=== PATIENT | male | born 1985 | race Caucasian/White ===

== ENCOUNTER → 2020-05-31 08:10 | Outpatient (BNVA) | payer BC, SELFPAY | PROVIDERS: Visit Provider Surgery | DX: E66.9 Obesity, unspecified (principal); Z68.34 Body mass index [BMI] 34.0-34.9, adult; Z71.3 Dietary counseling and surveillance ==

== ENCOUNTER → 2020-06-01 07:52 | Outpatient (BNVA) | payer BC, SELFPAY | PROVIDERS: PCP Family Medicine; Visit Provider Dietitian, Registered | DX: Z76.89 Persons encountering health services in other specified circumstances (principal) ==

== ENCOUNTER → 2020-06-09 07:12 | Outpatient (BNVA) | payer BC, SELFPAY | PROVIDERS: PCP Family Medicine; Visit Provider Surgery | DX: E66.9 Obesity, unspecified (principal); Z68.34 Body mass index [BMI] 34.0-34.9, adult ==

== ENCOUNTER → 2020-06-23 14:09 | Outpatient (BNVA) | payer BC, SELFPAY | PROVIDERS: Visit Provider Physician Assistant | DX: Z76.89 Persons encountering health services in other specified circumstances (principal) ==

== ENCOUNTER 2020-07-03 09:51 | Outpatient (REF) | payer BC, SELFPAY ==
--- NOTE | 2020-07-03 10:29 | ECG_ITS ---
Test Reason : PRE OP OBESITY Blood Pressure : / mmHG Vent. Rate : 064 BPM Atrial Rate : 064 BPM P-R Int : 148 ms QRS Dur : 110 ms QT Int : 384 ms P-R-T Axes : 036 012 022 degrees QTc Int : 396 ms Normal sinus rhythm with sinus arrhythmia Normal ECG No previous ECGs available Referred By: Noé Roy Electronically Signed By:JOSE ENRIQUE LEDEZMA MD
--- NOTE | 2020-07-03 10:47 | XR_ITS ---
EXAMINATION: XR CHEST CLINICAL INFORMATION: Obesity COMPARISON: None TECHNIQUE: 2 views of the chest were obtained. FINDINGS: No significant abnormality is noted involving the heart, lungs, mediastinum, bony thorax or soft tissues. XR/XR chest 2V IMPRESSION: Unremarkable examination.
[2020-07-03 10:52] LABS: MANUAL DIFF FLAG NO
[2020-07-03 11:02] LABS: Basophils Percent Auto 0.5 % (0-2); Eosinophils Absolute Auto 0.2 X10*3/uL (0.0-0.4); Eosinophils Percent Auto 2.6 % (0-4); Hematocrit 44.7 % (42-52); Hemoglobin 14.9 g/dl (14.0-18.0); Imm Gran Abs Auto 0.02 X10*3/uL (0.00-0.03); Imm Gran Pct Auto 0.3 % (0.0-0.4); Lymphocytes Absolute Auto 1.6 X10*3/uL (1.2-4.9); Lymphocytes Percent Auto 24.8 % (20-40); Mean Corpuscular HGB Conc 33.3 g/dl (31.0-36.0); Mean Corpuscular Hemoglobin 28.2 pg (27.0-33.0); Mean Corpuscular Volume 84.7 fL (80-98); Mean Platelet Volume 10.7 fL (9.4-12.4); Monocytes Absolute Auto 0.6 X10*3/uL (0.1-1.2); Monocytes Percent Auto 8.4 % (2-11); Neutrophils Absolute Auto 4.2 X10*3/uL (2.0-8.3); Neutrophils Percent Auto 63.4 % (45-73); Platelet Count 295 X10*3/uL (160-400); Red Blood Count 5.28 X10*6/uL (4.60-5.80); Red Cell Distribution Width 13.5 % (11.0-16.0); White Blood Count 6.6 X10*3/uL (4.8-10.8)
[2020-07-03 11:04] LABS: INTERNATIONAL NORM RATIO 1.2 (0.9-1.1); Prothrombin Time 13.7 SEC (10.8-13.0)
[2020-07-03 11:06] LABS: Partial Thromboplastin Time 34.4 SEC (24.1-38.0)
[2020-07-03 11:26] LABS: Alanine Aminotransferase 26 U/L (0-40); Albumin Level 4.7 g/dL (3.5-5.0); Alkaline Phosphatase 77 U/L (39-117); Anion Gap 13 (12-20); Aspartate Amino Transferase 17 U/L (5-37); Blood Urea Nitrogen 13 mg/dL (9-16); C Reactive Protein 0.49 mg/dL (< or = 0.50); Carbon Dioxide 28 mmol/L (22-29); Chloride 102 mmol/L (96-108); Cholesterol 185 mg/dL; Estimated Glomerular Filt Rate > 60; Glucose Random 82 mg/dL (60-115); HDL Cholesterol 36 mg/dL; LDL Cholesterol Calculated 129 mg/dl; Potassium 4.4 mmol/l (3.3-5.1); Sodium 139 mmol/L (135-145); Triglycerides 103 mg/dL
[2020-07-03 11:46] LABS: TSH reflex Free T4 0.76 mIU/mL (0.32-4.0)
[2020-07-03 11:48] LABS: Estimated Average Glucose 103 mg/dL; Hemoglobin A1c % 5.2 %
[2020-07-04 23:17] LABS: Insulin Level Total 6.1 uIU/mL
== END 2020-07-03 09:52 | disposition home or self-care (01) ==
LOC: HO.LAB 09:51
PROVIDERS: PCP Physician Assistant Medical; Visit Provider Surgery
DX: E66.9 Obesity, unspecified (principal); Z68.34 Body mass index [BMI] 34.0-34.9, adult
CPT/HCPCS: 36415; 71046; 80053; 80061; 83036; 83525; 84443; 85025; 85610; 85730; 86140; 86850; 86901; 93005

== ENCOUNTER 2020-07-04 05:41 | Inpatient (IN) | payer BC, SELFPAY ==
[2020-06-20 10:08] VITALS: BMI 34.0
--- NOTE | 2020-07-03 08:48 | P.CONAN_ITS ---
Documented by User: Elva Howell 07/03/20 14:05 HPI - Anesthesia Eval Consult details Narrative: 35yo M for Gastrectomy Sleeve, EGD,poss open,poss ventral hernia,poss diaphragmatic LABS PENDING [facility] Past Medical History Medical History No significant medical problems Obesity Family History Family History Father Heart problem Coronary artery clot DM (diabetes mellitus) HTN (hypertension) Obesity (BMI 30.0-34.9) Sleep apnea Mother RA (rheumatoid arthritis) Daughter No problems noted. Daughter No problems noted. Surgical History Surgical History History of tonsillectomy and adenoidectomy History of wisdom tooth extraction, class II edentulism S/P routine circumcision Social History Social History Are you a primary sub acute care nurse to a significant other at home: No Do you presently have visiting nurse or other home services: No Alcohol intake: never Smoking Status: Never smoker Second Hand Smoke Exposure: No Use of substances other than those prescribed or required for medical reasons: No Have you been hit, kicked, punched, or otherwise hurt by someone within the past year? If so, by whom?: No Advance Directives: No Advance Directives Information Provided: No Advance Directives on File: No Recently lost weight without trying: No Meds Allergies Allergy/AdvReac Type Severity Reaction Status Date / Time apples Allergy Unknown Swelling Uncoded 06/20/20 10:05 hazelnut Allergy Unknown Throat Uncoded 06/20/20 10:05 swelling,Difficult breathing kiwi Allergy Unknown Swelling Uncoded 06/20/20 10:05 peanut butter Allergy Unknown Swelling Uncoded 06/20/20 10:05 Home Medications Medication Instructions Recorded Confirmed Type cetirizine 10 mg tablet 10 mg PO DAILY 05/31/20 06/20/20 History Exam Exam Date and Time: July 03, 2020 0848 Height,Weight and Vital Signs: Height 5 ft 6 in Weight 95.708 kg Pertinent Lab Results Pertinent Lab Results: Laboratory Tests 07/03/20 07/03/20 07/03/20 10:15 10:15 10:15 WBC 6.6 Hgb 14.9 Hct 44.7 Plt Count 295 PT 13.7 H INR 1.2 H APTT 34.4 Sodium 139 Potassium 4.4 Chloride 102 Carbon Dioxide 28 BUN 13 Creatinine 0.84 Hemoglobin A1c % Blood Type Antibody Screen 07/03/20 07/03/20 10:15 10:15 WBC Hgb Hct Plt Count PT INR APTT Sodium Potassium Chloride Carbon Dioxide BUN Creatinine Hemoglobin A1c % 5.2 Blood Type A Negative Antibody Screen NEGATIVE Narrative Narrative: ECHO 12/06/19: LVEF 60-65%, No RWMA, No valve path EKG 06/2020: NSR with SA @ 64 Assessment and Plan Assessment Anesthesia Assessment: Chart Reviewed Documented by User: Janeth Menendez 07/04/20 07:46 [facility] Past Medical History Medical History No significant medical problems Obesity Family History Family History Father Heart problem Coronary artery clot DM (diabetes mellitus) HTN (hypertension) Obesity (BMI 30.0-34.9) Sleep apnea Mother RA (rheumatoid arthritis) Daughter No problems noted. Daughter No problems noted. Family history of problems with anesthesia: No Surgical History Surgical History History of tonsillectomy and adenoidectomy History of wisdom tooth extraction, class II edentulism S/P routine circumcision History of Problems with Anesthesia: No Social History Social History Are you a primary sub acute care nurse to a significant other at home: No Do you presently have visiting nurse or other home services: No Alcohol intake: never Smoking Status: Never smoker Second Hand Smoke Exposure: No Use of substances other than those prescribed or required for medical reasons: No Have you been hit, kicked, punched, or otherwise hurt by someone within the past year? If so, by whom?: No Advance Directives: No Advance Directives Information Provided: No Advance Directives on File: No Recently lost weight without trying: No Meds Allergies Allergy/AdvReac Type Severity Reaction Status Date / Time apples Allergy Unknown Swelling Uncoded 06/20/20 10:05 hazelnut Allergy Unknown Throat Uncoded 06/20/20 10:05 swelling,Difficult breathing kiwi Allergy Unknown Swelling Uncoded 06/20/20 10:05 peanut butter Allergy Unknown Swelling Uncoded 06/20/20 10:05 Home Medications Medication Instructions Recorded Confirmed Type cetirizine 10 mg tablet 10 mg PO DAILY 05/31/20 06/20/20 History Exam Height,Weight and Vital Signs: Vital Signs Temp Pulse Resp BP Pulse Ox 07/04/20 06:21 98.6 F 80 16 125/75 98 Airway Mallampati Class: III TM Dist: >3cm Neck ROM: Full (Pain with full extension) Loose/Missing/Broken Teeth: No Heart: RRR Lungs: CTAB Assessment and Plan Assessment Anesthesia Assessment: Anesthesia Plan Discussed and Chart Reviewed Final Anesthetic Review NPO: Yes ASA Class: II Final Preanesthetic Review: No Changes in Pt Med Stat, Meds/Allgs Chart Reviewed, Consent Obtained/Reviewed and Anes Risks/Benef Reviewed Patient Risk: Intermediate Procedure Risk: Intermediate Anesthetic Plan Anesthetic Plan: GA Disposition: Standard PACU
[2020-07-04] VITALS (18 sets, daily range): BP systolic 103–138; BP diastolic 54–80; PULSE 69–94; RESP 12–20; TEMP 36.2–37; O2SAT 95–100
[2020-07-04 06:30] LABS: COVID-19 Test Negative (Negative); IDNOW Serial# 9DD0AD1C
[2020-07-04] MEDS: Lactated Ringers 1,000 ML 100 ML IVCONT (06:43)
--- NOTE | 2020-07-04 07:29 | P.HPSUR_ITS ---
Pre-Procedural Eval Section A The patient is an INPATIENT: Yes The History & Physical has been completed within 30 days and I have reviewed it.: No Section B Chief Complaint: S/p sleeve, egd hernia repair Relevant Family History (Specify if Yes): No Relevant Social History: None Present Medications: see Short Stay Collaborative assessment Medical History: No relevant PMH History of Previous Operations: No relevant previous surgery Allergies: Allergies Allergy/AdvReac Type Severity Reaction Status Date / Time apples Allergy Unknown Swelling Uncoded 06/20/20 10:05 hazelnut Allergy Unknown Throat Uncoded 06/20/20 10:05 swelling,Difficult breathing kiwi Allergy Unknown Swelling Uncoded 06/20/20 10:05 peanut butter Allergy Unknown Swelling Uncoded 06/20/20 10:05 Review of Systems Sugical H&P ROS: Negative: Constitution, Cardiovascular, Respiratory, Neurological, Psychiatric, Hem-Onc, Allergic/Immunologic, Gastrointestinal, Genitourinary, Musculoskeletal, Integumentary, Endocrine and Eye s/Ears/Nose/Throat Exam Surgical H&P Exam: Normal: HEENT, Normal: Heart, Normal: Lungs, Normal: Extremities, Normal: Abdomen, Normal: Skin and Normal: Neurological Plan Diagnosis/Plan: Unchanged Patient has been examined and remains a candidate for the planned procedure
--- NOTE | 2020-07-04 10:20 | P.BOP_ITS ---
Brief Operative Note Date of Service: 07/04/20 Pre-op diagnosis: Severe obesity with a BMI of 39.2 kg/m2 and comorbidities Post-op diagnosis: same (Diaphragmatic hernia) Procedure: INITIAL PATIENT BMI ON PRESENTATION AT OUR OFFICE: 39.2 kg/m2 LAST BMI BEFORE SURGERY: 33.8 Kg/m2 COMORBIDITIES: The patient participated in an intensive weekly lifestyle intervention and exercise program during which the patient has lost between the initial office visit and the last preoperative visit 24.2lbs, or 10.11% of initial actual body weight. The patient met the BMI-criteria for bariatric surgery based on the BMI on initial presentation. The patient should not be penalized for achieving such weight loss because it is not sustainable long-term without surgical intervention and it was achieved in preparation for bariatric surgery under my direction and based on my published research ([email or web address] and [email or web address]) that a 10% preoperative weight loss improves long-term weight loss after surgery and reduces perioperative complications. Insurance carriers such as [facility] have endorsed my recommendations and have included in their policies criteria to include a 10% preoperative weight loss requirement. PROCEDURE: Esophago-gastroscopy, laparoscopic repair of incarcerated diaphragmatic hernia, laparoscopic lysis of adhesions, laparoscopic sleeve gastrectomy and laparoscopic gastropexy INDICATIONS: This is a 35 year-old male who was electively scheduled for laparoscopic, possibly open sleeve gastrectomy. The risks and complications of the procedure were discussed with the patient in advance, particularly the possibility of ; pulmonary embolism; staple line leak; bleeding; GERD; cardiac, pulmonary, or renal complications; as well as long-term problems such as insufficient weight loss, vitamin deficiency, strictures, or ulcers. The patient understood all the risks, and was in agreement to proceed with surgery. DESCRIPTION OF PROCEDURE: After informed consent was obtained from the patient, the patient was given preoperative antibiotics, and was transferred to the operating room. After successful induction of general anesthesia, pneumatic compressive devices were placed on both lower extremities. An upper endoscopy was performed next. The oropharynx and esophagus appeared to be within normal limits. There was a diaphragmatic hernia present of moderate size that was not reported at the preoperative upper GI. The stomach was entered. Then after all fluid and air were suctioned and the stomach was fully decompressed, the scope was withdrawn and secured in the mid esophagus. The patient was then prepped and draped in the usual sterile manner, and abdominal access was established at the right upper quadrant with the Sallie technique. A 12 mm blunt port was inserted, and the abdomen was insufflated with CO2 to a pressure of 15 mmHg. Under direct visualization, additional ports were placed, specifically two 5 mm Versi-step ports to the left upper quadrant, and a 5 mm Versi-Step port to the right upper quadrant. 1% lidocained plan was used to infiltrate all port sites as well as all fascia defects. Following that, the patient was placed in a steep reverse Trendelenburg position. An additional 5 mm port was placed to the right flank for the Mediflex retractor that was used to retract the left lobe of the liver. The gastro-esophageal fat pad was opened with the ultrasonic device (Thunderbeat, Olympus) and the anterior esophagus and hiatus were exposed. The angle of His was opened with the ultrasonic device the fundus of the stomach from any diaphragmatic and splenic attachments. I then opened the gastrocolic ligament between the transverse colon and the greater curvature of the stomach with the ultrasonic device to enter the lesser sac and facilitate the ligation of the short gastric vessels. I started at a mid-point along the greater curvature and using the Thunderbeat, all short mayi vince vessels were divided all the way to the angle of His until the left livan was completely dissected at its entirety. I then divided the gastro-colic ligament distally to a distance of about 3-4 cm proximal to the esophagus. There were extensive congenital adhesions between the pancreas and posterior gastric wall. Those were lysed completely with the ultrasonic device. Adhesiolysis took approximately 45 min to complete. There was an obvious significant-sized hiatal hernia. I continued dissecting along the hiatus toward the left livan and the angle of His. I fully mobilized the fat pad that was incarcerated in the hernia. I then continued by dissecting even further into the posterior retro-esophageal space all the way to the angle of His. I continued to mobilize the esophagus into the mediastinum circumferentially. Both vagal nerves were seen and preserved. At that point, I was able to have at least 3 to 5 cm of esophagus into the abdomen. The right livan was also dissected completely. After I completely mobilized the esophagus from both the left and right livan and I had a good mobilization of the esophagus circumferentially, I closed the hernia defect with three interrupted #0 Surgidac suture using the Endo Stitch device, two of which was placed posterior and one anterior to the esophagus. The stomach was then divided transversely with one Endo JAZZMINE-45 purple, one JAZZMINE- 45 orange and three JAZZMINE-60 articulating orange loads using the AEON stapler and loads. Every effort was made that the gastric sleeve had a tubular shape and an even caliber throughout. Once the sleeve resection was completed, the staple line of the gastric sleeve was reinforced with Hemoclips. The resected stomach was retrieved without difficulty from the Sallie port. A gastropexy was then performed in order to prevent postoperative GERD and partial gastric volvulus. Several interrupted 2.0 Surgidac sutures were placed between the sleeve's staple line and the previously divided greater omentum and gastro-colic ligament using the Endo-Stitch device. An upper endoscopy was performed. There was no narrowing at the GE junction. The scope was easily advanced all the way to the pylorus which was clearly visualized. There was no narrowing anywhere and the sleeve's caliber was even throughout. The sleeve's staple line was inspected and there was no evidence of ischemia, bleeding or dehiscence. At that point the gastroscope was withdrawn from the patient?s mouth while we were decompressing the bowel and the stomach from any remaining air. I looked into the lesser sac to see how the sleeve was situating and it was situating well. There was no bleeding from the staple line, spleen, or short gastric vessels. The Mediflex retractor was removed, and the undersurface of the liver was inspected and there was no bleeding. The patient was placed in supine position. I closed the fascial defect of the 12 mm port site with a figure of eight #1 Polysorb suture. Then 100 cc 0.25 % Marcaine plain with 10 mg of Dexamethasone were used to infiltrate the fascial closure as well as all skin incisions. At this point, the abdomen was deflated, all ports were removed under direct vision, and no bleeding was noted from any of the port sites. The skin incisions were irrigated with saline and were closed with 4-0 absorbable monofilament sutures. Steri-Strips and OpSites were used to cover all incisions. The patient was extubated and was transferred in stable condition to the recovery room for further care. I was present and performed all jaramillo parts of the procedure. Ms. Ramirezson was the assistant professor of theater. There were no residents to assist with this case. Herminio Roy MD, PhD, FACS Surgeon: Noé Roy MD Anesthesia: GETA, local and other (TAP block) Navy Diver: Franca Pimentel Estimated blood loss (mL): 10 IV fluids (mL): 2,500 Urine output (mL): 0 (No Ribera to record) Pathology: other (Stomach) Condition: stable Disposition: PACU
[2020-07-04] MEDS: ondansetron HCL 4 MG/2 ML VIAL IVPUSH ×2 (10:59→19:47)
[2020-07-04] MEDS: Famotidine/PF 20 MG/2 ML VIAL IVPUSH ×2 (11:02→21:30)
[2020-07-04 11:27] LABS: Basophils Percent Auto 0.1 % (0-2); Eosinophils Percent Auto 0.1 % (0-4); Hematocrit 40.7 % (42-52); Hemoglobin 13.7 g/dl (14.0-18.0); Imm Gran Abs Auto 0.04 X10*3/uL (0.00-0.03); Imm Gran Pct Auto 0.3 % (0.0-0.4); Lymphocytes Absolute Auto 0.8 X10*3/uL (1.2-4.9); MANUAL DIFF FLAG SCAN; Mean Corpuscular HGB Conc 33.7 g/dl (31.0-36.0); Mean Corpuscular Hemoglobin 28.4 pg (27.0-33.0); Mean Corpuscular Volume 84.4 fL (80-98); Mean Platelet Volume 10.6 fL (9.4-12.4); Monocytes Absolute Auto 0.2 X10*3/uL (0.1-1.2); Monocytes Percent Auto 1.7 % (2-11); Neutrophils Absolute Auto 10.6 X10*3/uL (2.0-8.3); Neutrophils Percent Auto 90.8 % (45-73); Platelet Count 254 X10*3/uL (160-400); Red Blood Count 4.82 X10*6/uL (4.60-5.80); Red Cell Distribution Width 13.3 % (11.0-16.0); SCAN SMEAR FLAG 1; White Blood Count 11.6 X10*3/uL (4.8-10.8)
[2020-07-04] MEDS: Lactated Ringers 1,000 ML 150 ML IVCONT ×2 (11:35→19:27)
[2020-07-04 11:51] LABS: Anion Gap 13 (12-20); Blood Urea Nitrogen 14 mg/dL (9-16); Calcium 8.7 mg/dL (8.4-10.2); Carbon Dioxide 26 mmol/L (22-29); Chloride 103 mmol/L (96-108); Creatinine Clr Calc Pharmacy 118.9; Estimated Glomerular Filt Rate > 60; Glucose Random 116 mg/dL (60-115); Potassium 3.8 mmol/l (3.3-5.1); Sodium 138 mmol/L (135-145)
[2020-07-04 12:04] LABS: SLIDE REVIEW VERIFIED
[2020-07-04] MEDS: Metoclopramide HCl 10 MG/2 ML VIAL IVPUSH (14:00)
[2020-07-04] MEDS: HYDROmorphone HCl 0.5 MG/0.5 ML SYRINGE 0.25 MG IVPUSH ×3 (14:01→22:53)
[2020-07-04] MEDS: ceFAZolin Sodium/Dextrose,Iso 2 GM/50 ML PIGGYBACK IV (14:06)
--- NOTE | 2020-07-04 23:06 | PC.NURSE ---
P-patient reported swallowing a small piece of nail ,3-4 mm long ORAL Schulte notified e-patient does not report any different discomfort
[2020-07-05] MEDS: 0.9 % Sodium Chloride Flush 3 ML SYRINGE IVFLUSH ×2 (00:03→07:45)
[2020-07-05] MEDS: Lactated Ringers 1,000 ML 150 ML IVCONT (02:14)
[2020-07-05] MEDS: ondansetron HCL 4 MG/2 ML VIAL IVPUSH (02:20)
[2020-07-05] MEDS: HYDROmorphone HCl 0.5 MG/0.5 ML SYRINGE 0.25 MG IVPUSH ×2 (02:52→08:36)
[2020-07-05 03:17] VITALS: BP 102/60; PULSE 54; RESP 16; TEMP 36.8; O2SAT 95
[2020-07-05 04:40] LABS: MANUAL DIFF FLAG NO
[2020-07-05 04:41] LABS: Basophils Percent Auto 0.1 % (0-2); Eosinophils Percent Auto 0.1 % (0-4); Hematocrit 36.1 % (42-52); Hemoglobin 12.1 g/dl (14.0-18.0); Imm Gran Abs Auto 0.02 X10*3/uL (0.00-0.03); Imm Gran Pct Auto 0.2 % (0.0-0.4); Lymphocytes Absolute Auto 1.3 X10*3/uL (1.2-4.9); Lymphocytes Percent Auto 11.4 % (20-40); Mean Corpuscular HGB Conc 33.5 g/dl (31.0-36.0); Mean Corpuscular Hemoglobin 28.3 pg (27.0-33.0); Mean Corpuscular Volume 84.5 fL (80-98); Mean Platelet Volume 10.5 fL (9.4-12.4); Monocytes Absolute Auto 0.9 X10*3/uL (0.1-1.2); Monocytes Percent Auto 7.7 % (2-11); Neutrophils Percent Auto 80.5 % (45-73); Platelet Count 261 X10*3/uL (160-400); Red Blood Count 4.27 X10*6/uL (4.60-5.80); Red Cell Distribution Width 13.4 % (11.0-16.0); White Blood Count 11.2 X10*3/uL (4.8-10.8)
[2020-07-05 05:11] LABS: Anion Gap 13 (12-20); Blood Urea Nitrogen 10 mg/dL (9-16); Calcium 8.6 mg/dL (8.4-10.2); Carbon Dioxide 25 mmol/L (22-29); Chloride 103 mmol/L (96-108); Creatinine Clr Calc Pharmacy 149.4; Estimated Glomerular Filt Rate > 60; Glucose Random 107 mg/dL (60-115); Potassium 4.2 mmol/l (3.3-5.1); Sodium 137 mmol/L (135-145)
[2020-07-05 07:33] VITALS: BP 110/64; PULSE 55; RESP 18; TEMP 36.5; O2SAT 98
--- NOTE | 2020-07-05 07:36 | PM.PNGS ---
Subjective Subjective Date of Service: 07/05/20 Interval history: Patient has mild incisional pain. Was able to ambulate and use the incentive spirometer. Physical Exam Vital Signs: Vital Signs: Last Vital Signs Temp 97.3 F 07/04/20 16:03 Pulse 75 07/04/20 11:56 Resp 16 07/04/20 16:03 BP 103/54 L 07/04/20 16:03 Pulse Ox 95 07/04/20 16:03 Body Mass Index 34.0 Chest: Chest palpation & inspection: normal inspection of the chest Resp: Effort & Inspection: normal respiratory effort Cardio: Jugular venous distension: no JVD Rate: regular rate GI: Inspection: Yes normal to inspection, Yes incision (incisions dry, clean and intact) and Yes obesity Extrem: Right lower extremity: normal to inspection (no calf tenderness) Left lower extremity: normal to inspection (no calf tenderness) Progress Note: A&P Assessment and plan (1) Obesity: Status: Acute Assessment and Plan: 35 year old Male was admitted 07/04/20 with morbid obesity and comorbidities. Problem 1: s/p laparoscopic sleeve gastrectomy, diaphragmatic hernia repair, gastropexy and lysis of adhesions Status: Doing well Plan: Check am labs, If OK, will continue phase 1 bariatric diet and discharge later today. (2) BMI 36.0-36.9,adult: Status: Acute (3) Sleep apnea: Status: Acute (4) Left ventricular hypertrophy: Status: Acute (5) GERD (gastroesophageal reflux disease): Status: Acute (6) Diaphragmatic hernia: Status: Acute (7) Steatosis, liver: Status: Acute (8) Liver fibrosis: Status: Acute (9) Erectile dysfunction: Status: Acute (10) S/P laparoscopic sleeve gastrectomy: Status: Acute (11) S/P repair of paraesophageal hernia: Status: Acute (12) Congenital intra-abdominal adhesions: Status: Acute Fall Risk Details Current Medications: Current Medications Generic Name Dose Route Start Last Admin Trade Name Freq PRN Reason Stop Dose Admin Famotidine 20 mg 07/04/20 10:30 07/04/20 11:02 Famotidine/Pf 20 Mg/2 Ml Vial IVPUSH 20 mg BID ELVER Administration Fentanyl 25 mcg 07/04/20 07:23 Fentanyl Citrate/Pf 100 Mcg/2 Ml Vial IVPUSH Q5M PRN Pain, Moderate (Pain Scale 4-6 Hydromorphone HCl 0.25 mg 07/04/20 07:23 07/04/20 14:01 Hydromorphone Hcl 0.5 Mg/0.5 Ml Syringe IVPUSH 0.25 mg Q5M PRN Administration Pain, Severe (Pain Scale 7-10) Hydromorphone HCl 0.25 mg 07/04/20 10:16 Hydromorphone Hcl 0.5 Mg/0.5 Ml Syringe IVPUSH Q4H PRN Pain, Moderate (Pain Scale 4-6 Promethazine HCl 6.25 mg/ 50.25 mls @ 201 mls/hr 07/04/20 07:23 Sodium Chloride IV ONCE PRN Nausea and Vomiting Lactated Ringer's 1,000 mls @ 150 mls/hr 07/04/20 10:30 07/04/20 11:35 Lr IVCONT 150 mls/hr .Q6H40M ELVER Administration Acetaminophen 1,000 mg in 100 mls @ 16.7 mls/hr 07/04/20 10:30 07/04/20 14:04 Ofirmev IV 16.7 mls/hr .Q6H ELVER Administration Metoclopramide HCl 10 mg 07/04/20 10:16 07/04/20 14:00 Metoclopramide Hcl 10 Mg/2 Ml Vial IVPUSH 10 mg Q6H PRN Administration Nausea Ondansetron HCl 4 mg 07/04/20 07:23 07/04/20 10:59 Ondansetron Hcl 4 Mg/2 Ml Vial IVPUSH 4 mg ONCE PRN Administration Nausea and Vomiting Ondansetron HCl 4 mg 07/04/20 10:30 07/04/20 12:07 Ondansetron Hcl 4 Mg/2 Ml Vial IVPUSH Not Given Q8H ELVER Sodium Chloride 3 ml 07/04/20 16:00 07/04/20 15:32 0.9 % Sodium Chloride Flush 3 Ml Syringe IVFLUSH Not Given QSHIFT ELVER Time Spent With Patient Time: Total time spent is greater than 50% in coordination of care (as documented) at patient's floor/unit and/or counseling patient: Time with patient: less than 15 minutes
[2020-07-05] MEDS: Famotidine/PF 20 MG/2 ML VIAL IVPUSH (08:30)
--- NOTE | 2020-07-05 09:53 | MHC.CM.PN ---
PATIENT IS DISCHARGED HOME - SELF CARE. NO DME OR VNA SERVICES. PATIENT HAS TRANSPORT HOME. PATIENT WAS DC PRIOR TO CM ASSESSMENT.
--- NOTE | 2020-07-05 13:35 | HO.POSTANES ---
Post Anesthesia Evaluation Post Anesthesia Evaluation Vital Signs: Vital Signs Temp Pulse Resp BP Pulse Ox 07/05/20 07:33 97.7 F 55 18 110/64 98 07/05/20 03:17 98.3 F 54 16 102/60 95 Anesthesia: General Endotracheal-GETA Mental Status: Awake Pain Control: Satisfactory Nausea/Vomiting: None Hydration: Adequate Anesthesia-Related Issues: No Anes. Related Issues
--- NOTE | 2020-08-02 13:39 | PM.DS ---
DS: Providers Provider Date of admission: 07/04/20 05:41 Primary care physician: Joyce Painting PA-C DS: Diagnosis Discharge Diagnosis (1) Obesity: Status: Acute (2) BMI 36.0-36.9,adult: Status: Acute (3) Sleep apnea: Status: Acute (4) Left ventricular hypertrophy: Status: Acute (5) GERD (gastroesophageal reflux disease): Status: Acute (6) Diaphragmatic hernia: Status: Acute (7) Steatosis, liver: Status: Acute (8) Liver fibrosis: Status: Acute (9) Erectile dysfunction: Status: Acute (10) S/P laparoscopic sleeve gastrectomy: Status: Acute (11) S/P repair of paraesophageal hernia: Status: Acute (12) Congenital intra-abdominal adhesions: Status: Acute DS: Medications Discharge Medications Home Medications: Home Medications Medication Instructions Recorded Confirmed cetirizine 10 mg tablet 10 mg PO DAILY 05/31/20 06/20/20 Previous Rx's Medication Instructions Recorded ondansetron HCl 4 mg tablet 4 mg PO Q6H PRN #30 tab 06/09/20 pantoprazole 40 mg tablet,delayed 40 mg PO DAILY #30 tab 06/09/20 release sucralfate 100 mg/mL oral 10 ml PO BID 90 Days #1800 ml 07/03/20 suspension DS: Summary Time Spent with Patient Time attestation: Total time spent providing and/or coordinating discharge services: Physical Exam Vital Signs: Vital Signs: Last Vital Signs Temp 97.7 F 07/05/20 07:33 Pulse 55 07/05/20 07:33 Resp 18 07/05/20 07:33 BP 110/64 07/05/20 07:33 Pulse Ox 98 07/05/20 07:33 Body Mass Index 34.0 DS: Data Data Completed and Pending Completed studies during hospitalization [Text1]: Pending at discharge 07/04/20 08:39 Surgical [PTH] Routine Procedures Excision of Stomach, Percutaneous Endoscopic Approach, Vertical (07/04/20) Release Peritoneum, Percutaneous Endoscopic Approach (07/04/20) Repair Diaphragm, Percutaneous Endoscopic Approach (07/04/20) Labs on day of discharge: 07/04/20 06:00 COVID-19 ID NOW ([place]) Stat 07/04/20 06:11 Acetaminophen [Ofirmev] 1,000 mg in 100 ml IV PREOP 07/04/20 06:15 Lactated Ringers [Lr] 1,000 ml IVCONT 100 mls/hr 07/04/20 06:45 Acetaminophen [Ofirmev] 1,000 mg in 100 ml IV As directed ceFAZolin Sodium/Dextrose,Iso [Ancef] 2 gm in 50 ml .ROUTE As directed 07/04/20 07:09 dexAMETHasone Sod Phosphate/PF [Decadron] 10 mg .ROUTE .STK-MED ONE 07/04/20 07:11 Bupivacaine MPF 0.25 % [Sensorcaine-MPF 0.25% 10 ML] 10 ml .ROUTE .STK-MED ONE Lidocaine HCl 1 % MPF [Xylocaine 1 % MPF] 5 ml .ROUTE .STK-MED ONE 07/04/20 07:23 Continuous pulse oximetry CONT Vital Signs Q1H Vital Signs Q5MIN HYDROmorphone HCl [Dilaudid] 0.25 mg IVPUSH Q5M PRN Promethazine HCL [Phenergan] 6.25 mg 0.9 % Sodium Chloride [Ns] 50 ml IV ONCE fentaNYL citrate/PF [Sublimaze] 25 mcg IVPUSH Q5M PRN ondansetron HCL [Zofran] 4 mg IVPUSH ONCE PRN 07/04/20 07:24 Oxygen administration Nasal Cannula 2 lpm 07/04/20 07:29 Ketamine HCl/NS 50 mg IVPUSH .STK-MED ONE Lidocaine HCl 2 % MPF [Xylocaine 2 % MPF] 5 ml .ROUTE .STK-MED ONE Midazolam HCl/PF [Versed] 2 mg .ROUTE .STK-MED ONE fentaNYL citrate/PF [Sublimaze] 50 mcg .ROUTE .STK-MED ONE propofoL [Diprivan] 200 mg IVPUSH .STK-MED ONE 07/04/20 07:30 Lactated Ringers [Lr] 1,000 ml IVCONT 999 mls/hr ceFAZolin Sodium/Dextrose,Iso [Ancef] 2 gm in 50 ml IV PREOP 07/04/20 07:56 dexAMETHasone sod phosphate [Decadron] 4 mg .ROUTE .STK-MED ONE ondansetron HCL [Zofran] 4 mg .ROUTE .STK-MED ONE 07/04/20 08:32 HYDROmorphone HCl [Dilaudid] 2 mg .ROUTE .STK-MED ONE 07/04/20 08:39 Surgical [PTH] Routine 07/04/20 08:40 Phenylephrine HCL 1,000 mcg IVPUSH .STK-MED ONE 07/04/20 09:52 Sugammadex Sodium [Bridion] 200 mg IVPUSH .STK-MED ONE 07/04/20 Breakfast NPO Diet 07/04/20 10:16 Compression Therapy QSHIFT Head of bed elevation DIRECTED Incentive Spirometry Q1HR WHILE AWAKE Intake and Output Q4HR Up ad west .Continous Code Status Routine HYDROmorphone HCl [Dilaudid] 0.25 mg IVPUSH Q4H PRN Metoclopramide HCl [Reglan] 10 mg IVPUSH Q6H PRN ceFAZolin Sodium/Dextrose,Iso [Ancef] 2 gm in 50 ml IV POSTOP 07/04/20 10:17 Vital Signs Q4H 07/04/20 10:18 Apply Abdominal Binder TOLERATED 07/04/20 10:30 Acetaminophen [Ofirmev] 1,000 mg in 100 ml IV 16.7 mls/hr Famotidine/PF [Pepcid/PF] 20 mg IVPUSH BID Lactated Ringers [Lr] 1,000 ml IVCONT 150 mls/hr ondansetron HCL [Zofran] 4 mg IVPUSH Q8H 07/04/20 10:56 Famotidine/PF [Pepcid/PF] 20 mg IVPUSH .STK-MED ONE ondansetron HCL [Zofran] 4 mg .ROUTE .STK-MED ONE 07/04/20 11:13 Basic Metabolic Panel DAILY@0500 Complete Blood Count Auto Diff DAILY@0500 SLIDE REVIEW Routine 07/04/20 16:00 0.9 % Sodium Chloride Flush [NS Flush] 3 ml IVFLUSH QSHIFT 07/05/20 04:29 Basic Metabolic Panel DAILY@0500 Complete Blood Count Auto Diff DAILY@0500 Laboratory Last Values WBC 11.2 X10*3/uL (4.8-10.8) H 07/05/20 04:29 RBC 4.27 X10*6/uL (4.60-5.80) L 07/05/20 04:29 Hgb 12.1 g/dl (14.0-18.0) L 07/05/20 04:29 Hct 36.1 % (42-52) L 07/05/20 04: MCV 84.5 fL (80-98) 07/05/20 04: MCH 28.3 pg (27.0-33.0) 07/05/20 04: MCHC 33.5 g/dl (31.0-36.0) 07/05/20 04: RDW 13.4 % (11.0-16.0) 07/05/20 04: Plt Count 261 X10*3/uL (160-400) 07/05/20 04:29 MPV 10.5 fL (9.4-12.4) 07/05/20 04: Immature Gran % (Auto) 0.2 % (0.0-0.4) 07/05/20 04: Neut % (Auto) 80.5 % (45-73) H 07/05/20 04: Lymph % (Auto) 11.4 % (20-40) L 07/05/20 04: [place] % (Auto) 7.7 % (2-11) 07/05/20 04: Eos % (Auto) 0.1 % (0-4) 07/05/20 04: Baso % (Auto) 0.1 % (0-2) 07/05/20 04: Lymph # (Auto) 1.3 X10*3/uL (1.2-4.9) 07/05/20 04: [place] # (Auto) 0.9 X10*3/uL (0.1-1.2) 07/05/20 04: Eos # (Auto) 0.0 X10*3/uL (0.0-0.4) 07/05/20 04:29 Baso # (Auto) 0.0 X10*3/uL (0.0-0.2) 07/05/20 04:29 Abs Immat Gran (auto) 0.02 X10*3/uL (0.00-0.03) 07/05/20 04:29 Absolute Neuts (auto) 9.0 X10*3/uL (2.0-8.3) H 07/05/20 04:29 Absolute Nucleated RBC 0.000 X10*3/uL (0.0-0.012) 07/05/20 04:29 Nucleated RBC % (auto) 0.0 /100WBC (0.0-0.2) 07/05/20 04:29 Smear Tech's Comments VERIFIED 07/04/20 11:13 Sodium 137 mmol/L (135-145) 07/05/20 04:29 Potassium 4.2 mmol/l (3.3-5.1) 07/05/20 04:29 Chloride 103 mmol/L (96-108) 07/05/20 04:29 Carbon Dioxide 25 mmol/L (22-29) 07/05/20 04:29 Anion Gap 13 (12-20) 07/05/20 04:29 BUN 10 mg/dL (9-16) 07/05/20 04:29 Creatinine 0.74 mg/dL (0.5-1.4) 07/05/20 04:29 Estim Creat Clear Calc 149.4 07/05/20 04:29 Estimated GFR > 60 07/05/20 04:29 Random Glucose 107 mg/dL (60-115) 07/05/20 04:29 Calcium 8.6 mg/dL (8.4-10.2) 07/05/20 04:29 COVID-19 ([facility]) Negative (Negative) 07/04/20 06:00 COVID-19 Clin Com See Note 07/04/20 06:00 Discharge Plan Discharge Anticipated Discharge Date/Time: 07/05/20 10:25 Patient Disposition: Home, Self-Care Referrals: Joyce Painting PA-C [Primary Care Provider] - Discharge Medications: Continued sucralfate 100 mg/mL suspension 10 ml PO BID 90 Days Qty: 1800 RF: 1 pantoprazole 40 mg tablet,delayed release (DR/EC) 40 mg PO DAILY Qty: 30 RF: 2 ondansetron HCl [Zofran] 4 mg tablet 4 mg PO Q6H PRN (Reason: nausea and vomiting) Qty: 30 RF: 0 cetirizine [Zyrtec] 10 mg tablet 10 mg PO DAILY RF: 0 Discontinued polyethylene glycol 3350 [Miralax] 17 gram powder in packet 17 g PO DAILY Qty: 14 RF: 0 phentermine 37.5 mg capsule 37.5 mg PO DAILY Qty: 14 RF: 0 Discharge Orders: Discharge Order (Routine); Ordered 07/05/20 Ordered By: Noé Roy Diet: other Activity on Discharge: No heavy lifting Discharge Date/Time: 07/05/20 10:50 Activity Restrictions/Additional Instructions: INSTRUCTIONS You are being discharged home on bariatric diet phase 1. Continue this today and start bariatric phase 2 tomorrow morning. Follow all instructions in the bariatric hand book and call with any questions. No lifting, sexual relations, tub baths or vigorous exercise, do not restart until told to do so by Dr Roy. No alcohol, tobacco or caffeine products. ADMITTING DIAGNOSIS: morbid obesity, DISCHARGE DIAGNOSIS: same, s/p laparoscopic sleeve gastrectomy and hiatal hernia PAST SURGICAL HISTORY: T&A, circumcision PROCEDURE: upper endoscopy, laparoscopic sleeve gastrectomy with gastropexy and hiatal hernia repair DISCHARGE SUMMARY: History of Present Illness: The patient is a 35year-old man with a BMI of 39.23 kg/m2 and associated co-morbidities as described above. The patient had extensive work-up,lost 28.4 lbs postoperatively and was electively scheduled for laparoscopic, possible open sleeve gastrectomy and gastropexy. Risks and complications of the surgery were discussed with the patient in advance, particularly the possibility of , pulmonary embolism, anastomotic leak, bleeding, bowel injury, GERD, cardiac, renal or pulmonary complications. The patient understood all the risks and was in agreement with the surgical plan. Hospital Course: The patient underwent an uneventful laparoscopic sleeve gastrectomy with gastropexy and hiatal hernia repair the day of admission. Postoperatively, the patient was transferred to the surgical floor. The patient was on IV Acetaminophen and IV dilaudid for pain control. Patient was started on bariatric phase 1 diet POD #0. On postoperative day one, the patient was feeling well without nausea, vomiting, fevers, or tachycardia. The patient had some mild incisional pain. The abdomen was soft. On the morning of postoperative day one, the patient was continued on 1 ounce of water or ice every half hour. During the first day, the patient did fairly well, having some incisional pain, but able to ambulate adequately and to tolerate liquids well. Since the patient is doing well, we decided that the patient was ready to be discharged. The patient was given instructions to follow-up with me next week and to call my office for any fever over 101, persistent abdominal pain, nausea, vomiting, GERD, change in the color of the JES fluid, symptoms of DVT such as calf tenderness, or leg swelling, or pulmonary embolism such as chest pain or shortness of breath. The patient was also instructed to drink 40-60 ounces of liquids per day using the 1-ounce cups. The patient was given prescription for Tylenol for pain, Zofran prn for nausea, and pantoprazole and carafate. The patient was encouraged to ambulate and use the incentive spirometer. The patient was allowed to shower, but no baths, and encouraged to stay active at home. All of these instructions were given to the patientpersonally. All questions were answered and the patient understood all instructions, the instructions were also given to the patient in print. Visit Report Forms: Patient Portal Discharge page Care Plan Goals: weight loos Health Concerns: obesity Plan of Treatment: see discharge instructions
== END 2020-07-05 10:50 | disposition home or self-care (01) | DRG 403 ==
LOC: HO.SSSA 10:30 → HO.S3 10:34
PROVIDERS: Nurse Practitioner; Physician Assistant; Admitting Provider Surgery; PCP Physician Assistant Medical; Visit Provider Surgery
PROC: 0DB64Z3 Excision of Stomach, Percutaneous Endoscopic Approach, Vertical (ICD-10-PCS; CPT 43845; principal; 2020-07-04 07:30)
DX: E66.01 Morbid (severe) obesity due to excess calories (principal); K44.0 Diaphragmatic hernia with obstruction, without gangrene; K21.9 Gastro-esophageal reflux disease without esophagitis; Z68.34 Body mass index [BMI] 34.0-34.9, adult; N52.9 Male erectile dysfunction, unspecified; Z20.828 Contact with and (suspected) exposure to other viral communicable diseases; K66.0 Peritoneal adhesions (postprocedural) (postinfection); Z79.899 Other long term (current) drug therapy
CPT/HCPCS: 36415; 71046; 80048; 80053; 80061; 83036; 83525; 84443; 85025; 85610; 85730; 86140; 86850; 86901; 87635; 88307; 88342; 93005; 99024; A4649; J0131; J0690; J1100; J1170; J2250; J2370; J2405; J2765; J3010

== ENCOUNTER → 2020-07-10 12:17 | Outpatient (BNVA) | payer BC, SELFPAY | PROVIDERS: Visit Provider Surgery | DX: Z76.89 Persons encountering health services in other specified circumstances (principal) ==

== ENCOUNTER → 2020-08-14 12:42 | Outpatient (BNVA) | payer BC, SELFPAY | PROVIDERS: Visit Provider Surgery | DX: Z76.89 Persons encountering health services in other specified circumstances (principal) ==

== ENCOUNTER → 2020-08-30 08:04 | Outpatient (BNVA) | payer BC, SELFPAY | PROVIDERS: PCP Physician Assistant Medical; Visit Provider Surgery ==

== ENCOUNTER → 2020-09-20 08:13 | Outpatient (BNVA) | payer BC, SELFPAY | PROVIDERS: PCP Physician Assistant Medical; Visit Provider Surgery ==

== ENCOUNTER → 2020-10-18 08:08 | Outpatient (BNVA) | payer BC, SELFPAY | PROVIDERS: PCP Physician Assistant Medical; Visit Provider Surgery ==

== ENCOUNTER → 2020-11-20 08:11 | Outpatient (BNVA) | payer BC, SELFPAY | PROVIDERS: PCP Physician Assistant Medical; Visit Provider Surgery ==

== ENCOUNTER → 2021-01-10 08:21 | Outpatient (BNVA) | payer BC, SELFPAY | PROVIDERS: PCP Physician Assistant Medical; Visit Provider Surgery ==

== ENCOUNTER → 2021-03-14 14:52 | Outpatient (BNVA) | payer BC, SELFPAY | PROVIDERS: PCP Physician Assistant Medical; Visit Provider Physician Assistant ==

== ENCOUNTER → 2021-04-16 09:15 | Outpatient (BNVA) | payer BC, SELFPAY | PROVIDERS: PCP Physician Assistant Medical; Visit Provider Surgery ==

== ENCOUNTER 2021-04-24 20:04 | Inpatient (IN) | payer BC, SELFPAY ==
[2021-04-19 11:10] LABS: MANUAL DIFF FLAG NO
[2021-04-19 11:16] LABS: Basophils Percent Auto 0.6 % (0-2); Eosinophils Absolute Auto 0.1 X10*3/uL (0.0-0.4); Eosinophils Percent Auto 2.6 % (0-4); Hematocrit 41.6 % (42-52); Hemoglobin 14.1 g/dl (14.0-18.0); Imm Gran Abs Auto 0.01 X10*3/uL (0.00-0.03); Imm Gran Pct Auto 0.2 % (0.0-0.4); Lymphocytes Absolute Auto 1.6 X10*3/uL (1.2-4.9); Lymphocytes Percent Auto 34.2 % (20-40); Mean Corpuscular HGB Conc 33.9 g/dl (31.0-36.0); Mean Corpuscular Hemoglobin 29.1 pg (27.0-33.0); Mean Corpuscular Volume 85.8 fL (80-98); Mean Platelet Volume 10.7 fL (9.4-12.4); Monocytes Absolute Auto 0.4 X10*3/uL (0.1-1.2); Monocytes Percent Auto 9.2 % (2-11); Neutrophils Absolute Auto 2.5 X10*3/uL (2.0-8.3); Neutrophils Percent Auto 53.2 % (45-73); Platelet Count 251 X10*3/uL (160-400); Red Blood Count 4.85 X10*6/uL (4.60-5.80); Red Cell Distribution Width 13.3 % (11.0-16.0); White Blood Count 4.7 X10*3/uL (4.8-10.8)
[2021-04-19 11:28] LABS: INTERNATIONAL NORM RATIO 1.1 (0.9-1.1); Prothrombin Time 12.6 SEC (9.9-13.0)
[2021-04-19 11:30] LABS: Partial Thromboplastin Time 34.2 SEC (24.1-38.0)
[2021-04-19 11:49] LABS: Alanine Aminotransferase 20 U/L (0-40); Albumin Level 4.5 g/dL (3.5-5.0); Alkaline Phosphatase 73 U/L (39-117); Anion Gap 11 (12-20); Aspartate Amino Transferase 18 U/L (5-37); Bilirubin Total 1.1 mg/dL (0.0-1.0); Blood Urea Nitrogen 17 mg/dL (9-16); Calcium 10.1 mg/dL (8.4-10.2); Carbon Dioxide 26 mmol/L (22-29); Chloride 106 mmol/L (96-108); Cholesterol 191 mg/dL; Estimated Glomerular Filt Rate > 60; Glucose Random 83 mg/dL (60-115); HDL Cholesterol 59 mg/dL; Iron 101 mcg/dL (45-160); LDL Cholesterol Calculated 120 mg/dl; Percent Iron Saturation 29 % (15-50); Sodium 139 mmol/L (135-145); Total Iron Binding Capacity 343 mcg/dL (228-428); Total Protein 7.5 g/dL (6.5-8.0); Triglycerides 60 mg/dL; Unsaturated Iron Binding 242 ug/dL
[2021-04-19 12:02] LABS: Estimated Average Glucose 100 mg/dL; Hemoglobin A1c % 5.1 %
[2021-04-19 12:07] LABS: Vitamin B12 555 pg/mL (200-900)
[2021-04-19 12:10] LABS: Ferritin 137 ng/mL (20-250); TSH reflex Free T4 1.47 uIU/mL (0.32-4.0); Vitamin D 25-OH Total 20.3 ng/mL (>30)
[2021-04-21 01:56] LABS: Insulin Level Total 3.5 uIU/mL
[2021-04-22 06:46] LABS: Calcium (PTHI) 9.9 mg/dL (8.6-10.3); PTHI 27 pg/mL (14-64)
[2021-04-23 09:02] LABS: Zinc 82 mcg/dL (60-130)
--- NOTE | 2021-04-23 10:40 | HO.ANESPROP2 ---
Documented by User: Elva Howell NP 04/23/21 10:41 HPI - Anesthesia Eval Consult details Narrative: 35yo M for Panniculectomy s/p gastric sleeve 06/2020 with GA-ETT 7.5 PMFSH Active Problems Active Problems: All Active Problems (Updated 04/22/21 @ 11:17 by Noé Roy MD) Vitamin D deficiency (Acute) BMI 34.0-34.9,adult (Acute) BMI 36.0-36.9,adult (Acute) S/P laparoscopic sleeve gastrectomy (Acute) S/P repair of paraesophageal hernia (Acute) Congenital intra-abdominal adhesions (Acute) BMI 32.0-32.9,adult (Acute) BMI greater than 30 (Acute) Overweight (Acute) Postgastrectomy malabsorption (Acute) Cellulitis (Acute) Overweight (Acute) Excess skin (Acute) Obesity (Acute) Past Medical History Medical History (Updated 04/22/21 @ 11:17 by Noé Roy MD) Diaphragmatic hernia Erectile dysfunction Excess skin GERD (gastroesophageal reflux disease) Left ventricular hypertrophy Liver fibrosis No significant medical problems Obesity Sleep apnea Steatosis, liver Family History Family History Father Heart problem Coronary artery clot DM (diabetes mellitus) HTN (hypertension) Obesity (BMI 30.0-34.9) Sleep apnea Mother RA (rheumatoid arthritis) Daughter No problems noted. Daughter No problems noted. Family history of problems with anesthesia: No Surgical History Surgical History (Updated 04/19/21 @ 13:19 by Zelda Estrella RN) History of sleeve gastrectomy History of tonsillectomy and adenoidectomy History of wisdom tooth extraction, class II edentulism S/P routine circumcision History of Problems with Anesthesia: No Social History Social History Are you a primary care professional to a significant other at home: No Do you presently have visiting nurse or other home services: No Alcohol intake: never Patient Tobacco Use Status: Never used Tobacco Second Hand Smoke Exposure: No Meds Allergies Allergy/AdvReac Type Severity Reaction Status Date / Time Peanut Butter Allergy Itching Verified 04/24/21 08:45 apples Allergy Unknown Swelling Uncoded 04/19/21 13:20 hazelnut Allergy Unknown Throat Uncoded 04/19/21 13:20 swelling,Difficult breathing kiwi Allergy Unknown Swelling Uncoded 04/19/21 13:20 Home Medications Medication Instructions Recorded Confirmed Last Taken Type cetirizine 10 mg tablet (Zyrtec) 10 mg PO DAILY 05/31/20 04/19/21 Unknown History Exam Exam Date and Time: April 23, 2021 1040 Pertinent Lab Results Pertinent Lab Results: Laboratory Tests 04/19/21 04/19/21 04/19/21 10:15 10:15 10:15 WBC 4.7 L RBC 4.85 Hgb 14.1 Hct 41.6 L MCV 85.8 MCH 29.1 MCHC 33.9 RDW 13.3 Plt Count 251 MPV 10.7 Immature Gran % (Auto) 0.2 Neut % (Auto) 53.2 Lymph % (Auto) 34.2 [place] % (Auto) 9.2 Eos % (Auto) 2.6 Baso % (Auto) 0.6 Lymph # (Auto) 1.6 [place] # (Auto) 0.4 Eos # (Auto) 0.1 Baso # (Auto) 0.0 Abs Immat Gran (auto) 0.01 Absolute Neuts (auto) 2.5 Absolute Nucleated RBC 0.000 Nucleated RBC % (auto) 0.0 PT 12.6 INR 1.1 APTT 34.2 Sodium 139 Potassium 4.0 Chloride 106 Carbon Dioxide 26 Anion Gap 11 L BUN 17 H D Creatinine 0.74 Estim Creat Clear Calc TNP Estimated GFR > 60 Random Glucose 83 Estimat Average Glucose Hemoglobin A1c % Total Insulin Calcium 10.1 D Iron 101 TIBC 343 % Saturation 29 Unsat Iron Binding 242 Ferritin 137 Total Bilirubin 1.1 H AST 18 ALT 20 Alkaline Phosphatase 73 C-Reactive Protein 0.10 Total Protein 7.5 Albumin 4.5 Triglycerides 60 Cholesterol 191 LDL Cholesterol, Calc 120 HDL Cholesterol 59 D Vitamin B12 25-OH Vitamin D Total 20.3 TSH 1.47 PTH Intact Calcium (PTH Intact) Zinc Blood Type Antibody Screen 04/19/21 04/19/21 04/19/21 10:15 10:15 10:15 WBC RBC Hgb Hct MCV MCH MCHC RDW Plt Count MPV Immature Gran % (Auto) Neut % (Auto) Lymph % (Auto) [place] % (Auto) Eos % (Auto) Baso % (Auto) Lymph # (Auto) [place] # (Auto) Eos # (Auto) Baso # (Auto) Abs Immat Gran (auto) Absolute Neuts (auto) Absolute Nucleated RBC Nucleated RBC % (auto) PT INR APTT Sodium Potassium Chloride Carbon Dioxide Anion Gap BUN Creatinine Estim Creat Clear Calc Estimated GFR Random Glucose Estimat Average Glucose 100 Hemoglobin A1c % 5.1 Total Insulin 3.5 Calcium Iron TIBC % Saturation Unsat Iron Binding Ferritin Total Bilirubin AST ALT Alkaline Phosphatase C-Reactive Protein Total Protein Albumin Triglycerides Cholesterol LDL Cholesterol, Calc HDL Cholesterol Vitamin B12 555 25-OH Vitamin D Total TSH PTH Intact 27 Calcium (PTH Intact) 9.9 Zinc Blood Type Antibody Screen 04/19/21 04/19/21 10:15 10:15 WBC RBC Hgb Hct MCV MCH MCHC RDW Plt Count MPV Immature Gran % (Auto) Neut % (Auto) Lymph % (Auto) [place] % (Auto) Eos % (Auto) Baso % (Auto) Lymph # (Auto) [place] # (Auto) Eos # (Auto) Baso # (Auto) Abs Immat Gran (auto) Absolute Neuts (auto) Absolute Nucleated RBC Nucleated RBC % (auto) PT INR APTT Sodium Potassium Chloride Carbon Dioxide Anion Gap BUN Creatinine Estim Creat Clear Calc Estimated GFR Random Glucose Estimat Average Glucose Hemoglobin A1c % Total Insulin Calcium Iron TIBC % Saturation Unsat Iron Binding Ferritin Total Bilirubin AST ALT Alkaline Phosphatase C-Reactive Protein Total Protein Albumin Triglycerides Cholesterol LDL Cholesterol, Calc HDL Cholesterol Vitamin B12 25-OH Vitamin D Total TSH PTH Intact Calcium (PTH Intact) Zinc 82 Blood Type A Negative Antibody Screen NEGATIVE Narrative Narrative: ECHO 12/06/19: LVEF 60-65%, No RWMA, No valve path EKG 06/2020: NSR with SA @ 64 Assessment and Plan Assessment Anesthesia Assessment: Chart Reviewed Final Anesthetic Review Family History of Problems with Anesthesia: No History of Problems with Anesthesia: No Documented by User: Mejia Campos MD 04/24/21 14:44 PMFSH Past Medical History Medical History (Updated 04/22/21 @ 11:17 by Noé Roy MD) Diaphragmatic hernia Erectile dysfunction Excess skin GERD (gastroesophageal reflux disease) Left ventricular hypertrophy Liver fibrosis No significant medical problems Obesity Sleep apnea Steatosis, liver Family History Family History Father Heart problem Coronary artery clot DM (diabetes mellitus) HTN (hypertension) Obesity (BMI 30.0-34.9) Sleep apnea Mother RA (rheumatoid arthritis) Daughter No problems noted. Daughter No problems noted. Surgical History Surgical History (Updated 04/19/21 @ 13:19 by Zelda Estrella RN) History of sleeve gastrectomy History of tonsillectomy and adenoidectomy History of wisdom tooth extraction, class II edentulism S/P routine circumcision Social History Social History Are you a primary care professional to a significant other at home: No Do you presently have visiting nurse or other home services: No Alcohol intake: never Patient Tobacco Use Status: Never used Tobacco Second Hand Smoke Exposure: No Meds Allergies Allergy/AdvReac Type Severity Reaction Status Date / Time Peanut Butter Allergy Itching Verified 04/24/21 08:45 apples Allergy Unknown Swelling Uncoded 04/19/21 13:20 hazelnut Allergy Unknown Throat Uncoded 04/19/21 13:20 swelling,Difficult breathing kiwi Allergy Unknown Swelling Uncoded 04/19/21 13:20 Home Medications Medication Instructions Recorded Confirmed Last Taken Type cetirizine 10 mg tablet (Zyrtec) 10 mg PO DAILY 05/31/20 04/19/21 Unknown History Exam Airway Mallampati Class: I TM Dist: >3cm Neck ROM: Full Loose/Missing/Broken Teeth: No Assessment and Plan Assessment Anesthesia Assessment: Anesthesia Plan Discussed Final Anesthetic Review NPO: Yes ASA Class: II Final Preanesthetic Review: No Changes in Pt Med Stat, Meds/Allgs Chart Reviewed, Consent Obtained/Reviewed and Anes Risks/Benef Reviewed Patient Risk: Intermediate Procedure Risk: Low Anesthetic Plan Anesthetic Plan: GA Disposition: Standard PACU
--- NOTE | 2021-04-23 19:10 | MHC.SHP ---
Pre-Procedural Eval Section A Date of Service: 04/23/21 The patient is an INPATIENT: No The History & Physical has been completed within 30 days and I have reviewed it.: Yes Section B Chief Complaint: excessive and redundant skin and tissue Relevant Family History (Specify if Yes): No Relevant Social History: None Present Medications: see Short Stay Collaborative assessment Medical History: No relevant PMH History of Previous Operations: Relevant previous surgery/procedure and date(s) (Sleeve gastrectomy) Allergies: Allergies Allergy/AdvReac Type Severity Reaction Status Date / Time apples Allergy Unknown Swelling Uncoded 04/19/21 13:20 hazelnut Allergy Unknown Throat Uncoded 04/19/21 13:20 swelling,Difficult breathing kiwi Allergy Unknown Swelling Uncoded 04/19/21 13:20 Review of Systems Sugical H&P ROS: Negative: Constitution, Cardiovascular, Respiratory, Neurological, Psychiatric, Hem-Onc, Allergic/Immunologic, Gastrointestinal, Genitourinary, Musculoskeletal, Integumentary, Endocrine and Eyes/Ears/Nose/Throat Exam Surgical H&P Exam: Normal: HEENT, Normal: Heart, Normal: Lungs, Normal: Extremities, Normal: Abdomen, Normal: Skin and Normal: Neurological Plan Diagnosis/Plan: Unchanged I have reviewed the history and physical and performed a pertinent physical examination on my patient. No changes have occurred unless specified.
[2021-04-24] VITALS (12 sets, daily range): BP systolic 94–132; BP diastolic 57–86; PULSE 64–107; RESP 16–20; TEMP 36.8–38; O2SAT 95–100; BMI 27.1; BMI 32.6
[2021-04-24 09:20] LABS: COVID-19 Test Negative (Negative); IDNOW Serial# 9DD0AD1C
[2021-04-24] MEDS: Lactated Ringers 1,000 ML 100 ML IVCONT (09:21)
--- NOTE | 2021-04-24 10:19 | PC.NURSE ---
SPOKE TO CASE MANAGEMENT DYLON VALLE 4304 REGARDING PATIENT. MD MORILLO WANTS A VISITING NURSE TO SEE PATIENT EVERY DAY SINCE HE IS NOT BEING ADMITTED TO THE HOSPITAL. PATIENT IS TO STAY WITH HER MOTHER IN [place]. CASE MANAGEMENT MADE AWARE AND WORKING ON THE REQUEST.
--- NOTE | 2021-04-24 10:39 | PM.OP ---
Brief Operative Note Date of Service: 04/24/21 Pre-op diagnosis: panniculitis Post-op diagnosis: same Procedure: PROCEDURE: Panniculectomy with umbilical transposition and bilateral subcutaneous flaps INDICATION: This a 35 year old male who underwent laparoscopic sleeve gastrectomy on 07/04/2020. He had an excellent result achieving a BMI of 27.2 kg/m2 with a total weight loss of 74lbs, or 30.91% of her TBWL. As a result, she has developed panniculitis which has not resolved despite continuous use of clotrimazole ointment. On exam she has extreme skin laxity due to massive weight loss and age with the abdominal pannus completely hiding the genitalia. Panniculectomy was recommended. We discussed the two options for the panniculectomy of using a combined vertical and horizontal incisions or just a horizontal (bikini) incision. It was my recommendation to do only horizontal incision based on her body habitus and skin laxity. The patient agreed with this. Risks and complications were discussed with the patient including bleeding, infection, umbilical loss, flap necrosis, asymmetry, dehiscence, seroma, VTE. The patient understood the risks and was in agreement to proceed with surgery. PROCEDURE: The incisions were appropriately marked at the preop area with the patient standing and laying down. After induction of general anesthesia, pneumatic compression devices were placed. The patient was prepped and draped in the usual sterile manner and the incisions were marked again and confirmed. The skin was infiltrated with lidocaine and epinephrine. The #10 blade scalpel was used for the large incisions and the #15 blade scalpel for the umbilicus. Cautery was used to divide the subcutaneous tissues until the fascia was identified. Then I used the Thunderbeat (Olympus) to separate the pannus from the fascia. The inferior incision was made initially and I mobilized the flap for a several centimeters cephalad to the umbilicus. The umbilicus was incised circumferentially and detached from the surrounding tissues all the way to the fascia while its stalk was preserved. With the patient in reflex position I confirmed that the skin flaps were appropriate and would allow for the tissues to come together with reasonable tension. At that point a horizontal incision was made 4 cm above the umbilicus. #10 blade was used for the skin, cautery for the dermis and the Thunderbeat for the remaining tissues. A bilateral subcutaneous fat flap was raised from the upper incision in order to fill the space under the skin and support the closure of the two skin flaps. In addition the inferior flap was mobilized caudally for a few centimeters to create a space for the omental flap as well as relieve tension from the closure. A circumferential incision was made at the area where the umbilicus would be re-implanted. The umbilicus was appropriately oriented and was delivered through the defect and was secured ?in place with a Rasta. No bleeding was noted anywhere. One JES drain was placed from the left corner of the horizontal incision across the wound and was secured in place with a silk suture. The subcutaneous fat flap was secured under the inferior flap with several interrupted 3.0 Monocryl sutures. The two flaps were brought together and were attached at the midline of the horizontal incision with a #3.0 Monocryl suture. At that point the umbilicus was properly oriented and was re-approximated to the skin with 8 interrupted 3.0 Monocryl sutures. In a similar fashion the skin flaps were re-approximated with multiple 3.0 Monocryl sutures. The skin was closed in all incisions and umbilicus with 4.0 Monocryl sutures. Steri-strips, xeroform gauzes and gauzes were used to cover the incisions. An abdominal binder was also placed. The was awaken and was transferred to the recover room in a stable condition. I was present and performed the entire procedure. Margarito was the first assistant manager. Herminio Roy MD, PhD, FACS Surgeon: Noé Roy MD Anesthesia: GETA and local Was an Entry Level Software Developer used for this Procedure?: No Entry Level Software Developer: Franca Pimentel Estimated blood loss (mL): 10 Urine output (mL): 0 (No Ribera to record) Pathology: other (abdominal pannus) Disposition: PACU
[2021-04-24] MEDS: ceFAZolin Sodium/Dextrose,Iso 2 GM/50 ML PIGGYBACK IV ×2 (10:48→23:10)
--- NOTE | 2021-04-24 14:13 | MHC.CM.PN ---
Patient to discharge home with [facility].
[2021-04-24 15:47] LABS: Hematocrit 37.5 % (42-52); Hemoglobin 12.8 g/dl (14.0-18.0)
--- NOTE | 2021-04-24 17:12 | HO.POSTANES ---
Post Anesthesia Evaluation Post Anesthesia Evaluation Vital Signs: Vital Signs Temp Pulse Resp BP Pulse Ox 04/24/21 15:35 88 18 117/70 96 04/24/21 15:20 81 18 119/61 95 04/24/21 15:05 107 H 18 125/64 100 04/24/21 15:00 77 18 120/69 100 04/24/21 14:55 93 16 132/62 100 04/24/21 14:50 100.4 F 87 16 129/71 97 04/24/21 09:05 98.2 F 70 16 122/63 100 Anesthesia: General Mental Status: Awake Pain Control: Satisfactory Nausea/Vomiting: None Hydration: Adequate Anesthesia-Related Issues: No Anes. Related Issues
[2021-04-25] VITALS: BP 112/60; PULSE 62; RESP 18; O2SAT 98
[2021-04-25] MEDS: Lactated Ringers 1,000 ML 125 ML IVCONT (01:00)
[2021-04-25] MEDS: 0.9 % Sodium Chloride Flush 3 ML SYRINGE IVFLUSH (01:02)
[2021-04-25 04:00] VITALS: BP 102/49; PULSE 61; RESP 18; TEMP 36.9; O2SAT 98
[2021-04-25] MEDS: ceFAZolin Sodium/Dextrose,Iso 2 GM/50 ML PIGGYBACK IV (06:16)
--- NOTE | 2021-04-25 06:41 | HO.POSTANES ---
Post Anesthesia Evaluation Post Anesthesia Evaluation Vital Signs: Vital Signs Temp Pulse Resp BP Pulse Ox 04/25/21 04:00 98.5 F 61 18 102/49 L 98 04/25/21 00:00 62 18 112/60 98 04/24/21 20:45 64 20 104/59 L 04/24/21 19:30 98/59 L Anesthesia: General Endotracheal-GETA Mental Status: Awake Pain Control: Satisfactory Nausea/Vomiting: None Hydration: Adequate Anesthesia-Related Issues: No Anes. Related Issues
[2021-04-25 07:14] LABS: MANUAL DIFF FLAG NO
[2021-04-25 07:16] LABS: Basophils Percent Auto 0.2 % (0-2); Eosinophils Absolute Auto 0.1 X10*3/uL (0.0-0.4); Eosinophils Percent Auto 0.5 % (0-4); Hemoglobin 11.7 g/dl (14.0-18.0); Imm Gran Abs Auto 0.04 X10*3/uL (0.00-0.03); Imm Gran Pct Auto 0.3 % (0.0-0.4); Lymphocytes Percent Auto 17.5 % (20-40); Mean Corpuscular HGB Conc 33.4 g/dl (31.0-36.0); Mean Corpuscular Hemoglobin 28.9 pg (27.0-33.0); Mean Corpuscular Volume 86.4 fL (80-98); Mean Platelet Volume 10.7 fL (9.4-12.4); Neutrophils Absolute Auto 8.4 X10*3/uL (2.0-8.3); Neutrophils Percent Auto 72.5 % (45-73); Platelet Count 222 X10*3/uL (160-400); Red Blood Count 4.05 X10*6/uL (4.60-5.80); Red Cell Distribution Width 13.3 % (11.0-16.0); White Blood Count 11.5 X10*3/uL (4.8-10.8)
[2021-04-25 07:32] VITALS: BP 115/48; PULSE 59; RESP 16; TEMP 36.7; O2SAT 99
[2021-04-25 07:37] LABS: Anion Gap 12 (12-20); Blood Urea Nitrogen 9 mg/dL (9-16); Carbon Dioxide 25 mmol/L (22-29); Chloride 107 mmol/L (96-108); Creatinine Clr Calc Pharmacy 145.4; Estimated Glomerular Filt Rate > 60; Glucose Random 98 mg/dL (60-115); Sodium 140 mmol/L (135-145)
--- NOTE | 2021-04-25 08:06 | P.PNGS_ITS ---
Subjective Subjective Date of Service: 04/25/21 Interval history: Feels well. Minimal incisional pain. No nausea Dressings changes and incisions are healing well. JES with minimal serosanguinous fluid Physical Exam Vital Signs: Vital Signs: Last Vital Signs Temp 98.0 F 04/25/21 07:32 Pulse 59 04/25/21 07:32 Resp 16 04/25/21 07:32 BP 115/48 L 04/25/21 07:32 Pulse Ox 99 04/25/21 07:32 Body Mass Index 32.6 GI: Inspection: Yes incision (clean, dry and intact, flap and umbilicus viable) Extrem: Right lower extremity: normal to inspection (no calf tenderness) Left lower extremity: normal to inspection (no calf tenderness) Procedures Date of Service Date of Service: 04/25/21 Progress Note: A&P Assessment and plan (1) Panniculitis: Status: Acute (2) S/P panniculectomy: Status: Acute Assessment and Plan: s/p panniculoectomy Doing well Will discharge home. D/c instructions were provided Fall Risk Details Current Medications: Current Medications Generic Name Dose Route Start Last Admin Trade Name Freq PRN Reason Stop Dose Admin Lactated Ringer's 1,000 mls @ 125 mls/hr 04/24/21 21:00 04/25/21 01:00 Lr IVCONT 125 mls/hr .Q8H ELVER Administration Cefazolin Sodium/Dextrose 2 gm in 50 mls @ 100 mls/hr 04/24/21 22:00 04/25/21 07:00 Ancef IV Infused Q8H ELVER Infusion Metoclopramide HCl 10 mg 04/24/21 21:04 Metoclopramide Hcl 10 Mg/2 Ml Vial IVPUSH Q6H PRN Nausea Sodium Chloride 3 ml 04/25/21 00:00 04/25/21 07:08 0.9 % Sodium Chloride Flush 3 Ml Syringe IVFLUSH Not Given QSHIFT ELVER Time Spent With Patient Time: Total time spent is greater than 50% in coordination of care (as diane nelson) at patient's floor/unit and/or counseling patient: Time with patient: less than 15 minutes Quality Stroke Does the patient have a stroke diagnosis?: No VTE Prior VTE?: No VTE Risk Level:: Surgical - moderate VTE Device Contraindication: N/A - Device Ordered VTE Drug Contraindication: Treatment Not Indicated
--- NOTE | 2021-04-25 08:18 | MHC.CM.PN ---
pt lives c his in their home. he is independent in his care, but his can help him should he have any needs. pt will be staying c his mother post op at [address] [place] [address]. he will have [facility] for nsg for which a ref. has already been made. pt will have his mother provide transportation at dc. dc plan is to his mother's home c [facility]. cm to cont. to follow.
[2021-04-25 17:32] LABS: Vitamin A 51 mcg/dL (38-98)
[2021-04-26 10:46] LABS: Vitamin B1 10 nmol/L (8-30)
--- NOTE | 2021-08-07 14:10 | P.DS_ITS ---
DS: Providers Provider Date of Service: 04/25/21 Date of admission: 04/24/21 20:04 Primary care physician: None Physician DS: Diagnosis Discharge Diagnosis (1) Panniculitis: Status: Acute (2) S/P panniculectomy: Status: Acute (3) S/P laparoscopic sleeve gastrectomy: Status: Acute DS: Summary Hospital Course Hospital Course: DISCHARGE SUMMARY ADMITTING DIAGNOSIS: panniculitis, s/p lap sleeve gastrectomy DISCHARGE DIAGNOSIS: The same. PAST SURGICAL HISTORY: Lap sleeve gastrectomy PROCEDURE: Panniculectomy. HISTORY OF PRESENT ILLNESS: The patient is a 35 year-old man with a BMI of 27.1 kg/m2 and associated co- morbidities as described previous. The patient had a laparoscopic sleeve gastrectomy on 07/04/2020 and has lost a total of 74 lbs, or 30.9% of his initial weight.. As a result of the massive weight loss she developed a large abdominal pannus and persistent panniculitis recalcitrant to medical treatment. The patient was electively scheduled for panniculectomy. Risks and complications of the surgery were discussed with the patient in advance, particularly the possibility of , pulmonary embolism, skin necrosis, loss of umbilicus, flap necrosis, wound dehiscence, flap asymmetry, bleeding requiring transfusion. The patient understood all the risks and was in agreement with the surgical plan. On postoperative day #1 the patient was started on Phase 3 bariatric diet. The Ribera was discontinued. She was allowed to ambulate and she had no dizziness. During the first day, the patient did fairly well, having some incisional pain, but able to ambulate adequately and to tolerate liquids well. All dressings were taken down and the all incisions were inspected. There was no evidence of infection or bleeding or significant discharge. All flaps and umbilicus were viable and there was no dehiscence. JES drains had minimal output with serosanguinous fluid. Since the patient is doing well, we decided that the patient was ready to be discharged. The patient was given instructions to follow-up with me next week and to call my office for any fever over 101, persistent abdominal pain, nausea, vomiting, and symptoms of DVT such as calf tenderness, or leg swelling, or pulmonary embolism such as chest pain or shortness of breath. The patient was also instructed to drink 40-60 ounces of liquids per day using the 1-ounce cups and start on 3 Pure protein shakes per day. The patient was given prescription for Tylenol for pain, Zofran prn for nausea and a 10-day course of Keflex twice a day. The patient was encouraged to ambulate and use the incentive spir ometer. However it was strongly recommended to do so with assistance and avoid any abdominal straining for at least one month. The patient was allowed only to do sponge baths, and encouraged to use th e recliner at home and not the bed. All of these instructions were given to the patient personally. All questions were answered and the patient understood all instructions. The instructions were given to the patient in print as well. Time Spent with Patient Time attestation: Total time spent providing and/or coordinating discharge services: Discharge coordination time: Less than 30 minutes Quality: Stroke Does the patient have a stroke diagnosis?: No Physical Exam Vital Signs: Vital Signs: Last Vital Signs Temp 98.0 F 04/25/21 07:32 Pulse 59 04/25/21 07:32 Resp 16 04/25/21 07:32 BP 115/48 L 04/25/21 07:32 Pulse Ox 99 04/25/21 07:32 BMI result Body Mass Index 32.6 DS: Data Data Completed and Pending Completed studies during hospitalization [Text1]: Pending at discharge 04/24/21 13:33 Surgical [PTH] Routine Procedures Excision of Abdomen Subcutaneous Tissue and Fascia, Open Approach (04/24/21) Excision of Stomach, Percutaneous Endoscopic Approach, Vertical (07/04/20) Release Peritoneum, Percutaneous Endoscopic Approach (07/04/20) Repair Diaphragm, Percutaneous Endoscopic Approach (07/04/20) Transfer Abdomen Subcutaneous Tissue and Fascia, Open Approach (04/24/21) Discharge Plan Discharge Patient Disposition: Home Health Service Discharge Diagnosis: Panniculitis Referrals: [facility] [Other] - 1 Day Physician,None [Primary Care Provider] - 1 Week Discharge Medications: Continued (DME) Xeroform Petrolatum Dressing 1 X 8 bandage See Rx Instructions .ROUTE .MEDSUPPLY Qty: 200 RF: 0 cetirizine [Zyrtec] 10 mg tablet 10 mg PO DAILY RF: 0 Discontinued clotrimazole 1 % cream 1 appl topical BID Qty: 45 RF: 2 No Action cholecalciferol (vitamin D3) 125 mcg (5,000 unit) capsule 125 mcg PO DAILY Qty: 30 RF: 2 Discharge Orders: Discharge Order (Routine); Ordered 04/24/21 Ordered By: Noé Roy Diet: other Activity on Discharge: No Contact sports Stand Alone Forms: Patient Portal Discharge page Activity Restrictions/Additional Instructions: 1) Start Keflex antibiotic 2) No showers. Only sponge baths 3) Avoid any tension at the abdomen and always have help getting up. Keep knees slighly bent and upper torso flexed forward. No abdominal stretching 4) Take 1 tab of Colace and one tablespoon of Metamucil daily Diet: 4 Celebrate protein shakes with 1 scoop in 8oz of almond milk each one and one Zone Perfect bar until you have a bowel movement. Once you have a bowel movement please change diet plan to 3 Celebrate 4:1 shakes, one Zone Perfect bar and one meal with 4 forks of meat and 4 forks of vegetables or salad. Do not stop or reduce shakes and bars. They are very important for your healing 5) Change dressings daily and send pictures to Dr. Roy. Replace loose steri-strips and xeroform gauze along the incisions.On top of the xeroform gauzes place 4x4 dressings and paper tape 6) Supplies needed: Kerlex rolls, 4x4 dressings, xeroform gauze, 1/2'' steri- strips, paper tape. You will need to use several of the above supplies on a daily basis. 7) Avoid heavy lifting for 3 weeks 8) Take Tylenol 500mg every 4 hours, around the clock for the next 3-4 days. If pain has improved you may slowly reduce its frequency 9) Avoid aspirin, Motrin, Aleve, Advil, Naproxyn, Ibuprofen for 2 weeks 7) Call Dr. Roy at [phone] for fever >101F, persistent incisional pain,, discharge from any of the incisions, swelling, redness, shortness of breath, calf pain 8) A visiting nurse will be seeing you daily to help with dressing changes 9) Measure accurately the drain output and record it in a paper for 24 hour periods (7am to 7am). Please bring that sheet with you at your next office appointment. Care Plan Goals: heal from surgery Health Concerns: none Plan of Treatment: 1) Start Keflex antibiotic 2) No showers. Only sponge baths 3) Avoid any tension at the abdomen and always have help getting up. Keep knees slighly bent and upper torso flexed forward. No abdominal stretching 4) Take 1 tab of Colace and one tablespoon of Metamucil daily Diet: 4 Celebrate protein shakes with 1 scoop in 8oz of almond milk each one and one Zone Perfect bar until you have a bowel movement. Once you have a bowel movement please change diet plan to 3 Celebrate 4:1 shakes, one Zone Perfect bar and one meal with 4 forks of meat and 4 forks of vegetables or salad. Do not stop or reduce shakes and bars. They are very important for your healing 5) Change dressings daily and send pictures to Dr. Roy. Replace loose steri-strips and xeroform gauze along the incisions.On top of the xeroform gauzes place 4x4 dressings and paper tape 6) Supplies needed: Kerlex rolls, 4x4 dressings, xeroform gauze, 1/2'' steri- strips, paper tape. You will need to use several of the above supplies on a daily basis. 7) Avoid heavy lifting for 3 weeks 8) Take Tylenol 500mg every 4 hours, around the clock for the next 3-4 days. If pain has improved you may slowly reduce its frequency 9) Avoid aspirin, Motrin, Aleve, Advil, Naproxyn, Ibuprofen for 2 weeks 7) Call Dr. Roy at [phone] for fever >101F, persistent incisional pain,, discharge from any of the incisions, swelling, redness, shortness of breath, calf pain 8) A visiting nurse will be seeing you daily to help with dressing changes 9) Measure accurately the drain output and record it in a paper for 24 hour periods (7am to 7am). Please bring that sheet with you at your next office appointment. Assessment: incisions were assessed and were healing well. No clinical issues Discharge Date/Time: 04/25/21 09:51
== END 2021-04-25 09:51 | disposition home health service (06) | DRG 364 ==
LOC: HO.ISO 20:07
PROVIDERS: Physician Assistant Surgical; Admitting Provider Surgery; Visit Provider Surgery
PROC: 0JB80ZZ Excision of Abdomen Subcutaneous Tissue and Fascia, Open Approach (ICD-10-PCS; CPT 15830; principal; 2021-04-24 10:10)
DX: M79.3 Panniculitis, unspecified (principal); K21.9 Gastro-esophageal reflux disease without esophagitis; L98.7 Excessive and redundant skin and subcutaneous tissue; Z20.822 Contact with and (suspected) exposure to COVID-19; Z98.84 Bariatric surgery status; Z79.899 Other long term (current) drug therapy
CPT/HCPCS: 15830; 36415; 80048; 80053; 80061; 82306; 82607; 82728; 83036; 83525; 83540; 83970; 84425; 84443; 84590; 84630; 85014; 85018; 85025; 85610; 85730; 86140; 86850; 86900; 86901; 87635; 88304; 90686; 99024; J0131; J0690; J1100; J1170; J2250; J2405; J3010

== ENCOUNTER → 2021-04-30 09:23 | Outpatient (BNVA) | payer BC, SELFPAY | PROVIDERS: Visit Provider Surgery ==

== ENCOUNTER → 2021-05-07 13:59 | Outpatient (BNVA) | payer BC, SELFPAY | PROVIDERS: Visit Provider Surgery ==

== ENCOUNTER → 2021-06-28 13:46 | Outpatient (BNVA) | payer BC, SELFPAY | PROVIDERS: Visit Provider Physician Assistant Surgical ==

== ENCOUNTER → 2021-08-22 08:06 | Outpatient (BNVA) | payer BC, SELFPAY | PROVIDERS: Visit Provider Physician Assistant Surgical | DX: E55.9 Vitamin D deficiency, unspecified (principal) ==

== ENCOUNTER → 2021-09-03 11:21 | Outpatient (BNVA) | payer OTHER, SELFPAY | PROVIDERS: Visit Provider Physician Assistant Surgical | DX: L98.7 Excessive and redundant skin and subcutaneous tissue (principal) | CPT/HCPCS: 99212 ==

== ENCOUNTER → 2021-12-13 08:13 | Outpatient (BNVA) | payer OTHER, SELFPAY | PROVIDERS: Visit Provider Physician Assistant Surgical | DX: E66.3 Overweight (principal); Z68.21 Body mass index [BMI] 21.0-21.9, adult | CPT/HCPCS: 99212 ==

== ENCOUNTER → 2021-12-17 09:03 | Outpatient (BNVA) | payer OTHER, SELFPAY | PROVIDERS: Visit Provider Surgery | DX: Z13.89 Encounter for screening for other disorder (principal) ==

== ENCOUNTER → 2021-12-18 08:19 | Outpatient (BNVA) | payer OTHER, SELFPAY | PROVIDERS: Visit Provider Surgery | DX: Z13.89 Encounter for screening for other disorder (principal) ==

== ENCOUNTER → 2021-12-21 08:13 | Outpatient (BNVA) | payer OTHER, SELFPAY | PROVIDERS: Visit Provider Dietitian, Registered | DX: E66.3 Overweight (principal); Z68.27 Body mass index [BMI] 27.0-27.9, adult | CPT/HCPCS: 97803 ==

== ENCOUNTER → 2021-12-27 06:21 | Day surgery (SDC) | payer OTHER, SELFPAY ==
[2021-12-12 14:23] VITALS: BMI 27.6
--- NOTE | 2021-12-22 17:31 | MHC.SHP ---
Pre-Procedural Eval Section A Date of Service: 12/22/21 The patient is an INPATIENT: No The History & Physical has been completed within 30 days and I have reviewed it.: Yes Section B Chief Complaint: Excessive/redundant skin and subcutaneous tissue Relevant Family History (Specify if Yes): No Relevant Social History: None Present Medications: None Medical History: No relevant PMH History of Previous Operations: Relevant previous surgery/procedure and date(s) (sleeve gastrectomy) Allergies: Allergies Allergy/AdvReac Type Severity Reaction Status Date / Time Peanut Butter Allergy Mild Itching Verified 12/18/21 19:08 strawberry Allergy Mild Itching Verified 12/18/21 19:08 hazelnut Allergy Severe Throat Uncoded 12/18/21 19:08 swelling,Difficult breathing apples Allergy Mild Itching Uncoded 12/18/21 19:08 kiwi Allergy Mild Itching Uncoded 12/18/21 19:08 Review of Systems Sugical H&P ROS: Negative: Constitution, Cardiovascular, Respiratory, Neurological, Psychiatric, Hem-Onc, Allergic/Immunologic, Gastrointestinal, Genitourinary, Musculoskeletal, Integumentary, Endocrine and Eyes/Ears/Nose/Throat Exam Surgical H&P Exam: Normal: HEENT, Normal: Heart, Normal: Lungs, Normal: Extremities, Normal: Abdomen, Normal: Skin and Normal: Neurological Plan Diagnosis/Plan: Unchanged I have reviewed the history and physical and performed a pertinent physical examination on my patient. No changes have occurred unless specified.
[2021-12-24 11:20] LABS: MANUAL DIFF FLAG NO
[2021-12-24 11:47] LABS: Basophils Percent Auto 0.6 % (0-2); Eosinophils Absolute Auto 0.2 X10*3/uL (0.0-0.4); Eosinophils Percent Auto 3.1 % (0-4); Hematocrit 42.2 % (42.0-52.0); Hemoglobin 14.4 g/dl (14.0-18.0); Imm Gran Abs Auto 0.01 X10*3/uL (0.00-0.03); Imm Gran Pct Auto 0.2 % (0.0-0.4); Lymphocytes Absolute Auto 1.5 X10*3/uL (1.2-4.9); Lymphocytes Percent Auto 29.8 % (20-40); Mean Corpuscular HGB Conc 34.1 g/dl (31.0-36.0); Mean Corpuscular Hemoglobin 28.8 pg (27.0-33.0); Mean Corpuscular Volume 84.4 fL (80.0-98.0); Mean Platelet Volume 10.6 fL (9.4-12.4); Monocytes Absolute Auto 0.5 X10*3/uL (0.1-1.2); Monocytes Percent Auto 9.1 % (2-11); Neutrophils Percent Auto 57.2 % (45-73); Platelet Count 261 X10*3/uL (160-400); Red Cell Distribution Width 13.1 % (11.0-16.0); White Blood Count 5.2 X10*3/uL (4.8-10.8)
[2021-12-24 11:51] LABS: INTERNATIONAL NORM RATIO 1.1 (0.9-1.1); Prothrombin Time 12.4 SEC (9.9-13.0)
[2021-12-24 11:54] LABS: Partial Thromboplastin Time 34.1 SEC (24.1-38.0)
[2021-12-24 12:17] LABS: Alanine Aminotransferase 22 U/L (0-40); Albumin Level 4.6 g/dL (3.5-5.0); Alkaline Phosphatase 70 U/L (39-117); Anion Gap 12 (12-20); Aspartate Amino Transferase 21 U/L (5-37); Bilirubin Total 0.7 mg/dL (0.0-1.0); Blood Urea Nitrogen 22 mg/dL (9-16); Calcium 9.9 mg/dL (8.4-10.2); Carbon Dioxide 27 mmol/L (22-29); Chloride 105 mmol/L (96-108); Creatinine Clr Calc Pharmacy 119.3; Estimated Glomerular Filt Rate > 60; Glucose Random 95 mg/dL (60-115); Potassium 4.1 mmol/L (3.3-5.1); Sodium 140 mmol/L (135-145); Total Protein 7.8 g/dL (6.5-8.0)
--- NOTE | 2021-12-26 09:14 | P.CONAN_ITS ---
Documented by User: Elva Howell NP 12/26/21 09:16 HPI - Anesthesia Eval Consult details Narrative: 36yo M for Bilateral Brachi[facility] Active Problems Active Problems: All Active Problems (Updated 12/12/21 @ 14:24 by Emma Anders RN) S/P laparoscopic sleeve gastrectomy (Acute) Overweight (Acute) Cellulitis (Acute) Panniculitis (Acute) S/P panniculectomy (Acute) Excess skin (Acute) Past Medical History Medical History BMI 32.0-32.9,adult BMI 34.0-34.9,adult BMI 36.0-36.9,adult BMI greater than 30 Congenital intra-abdominal adhesions COVID-19 vaccine series completed Diaphragmatic hernia Erectile dysfunction Excess skin GERD (gastroesophageal reflux disease) Left ventricular hypertrophy Liver fibrosis Obesity Overweight Postgastrectomy malabsorption Steatosis, liver Vitamin D deficiency Family History Family History Father Heart problem Coronary artery clot DM (diabetes mellitus) HTN (hypertension) Obesity (BMI 30.0-34.9) Sleep apnea Mother RA (rheumatoid arthritis) Daughter No problems noted. Daughter No problems noted. Family history of problems with anesthesia: No Surgical History Surgical History History of sleeve gastrectomy History of tonsillectomy and adenoidectomy History of wisdom tooth extraction, class II edentulism Hx of abdominal surgery S/P repair of paraesophageal hernia S/P routine circumcision History of Problems with Anesthesia: No Social History Social History Household Members: Children Household Members Other:: minor children Housing: House Are you a primary lawn care specialist to a significant other at home: Yes Do you presently have visiting nurse or other home services: No Alcohol intake: never Patient Tobacco Use Status: Never used Tobacco Second Hand Smoke Exposure: No Use of substances other than those prescribed or required for medical reasons: No Have you been hit, kicked, punched, or otherwise hurt by someone within the past year? If so, by whom?: No Are you DNR?: No Advance Directives: No Advance Directives Information Provided: Yes (brochure mailed) Advance Directives on File: No Recently lost weight without trying: No Eating poorly because of decreased appetite: No Nutrition Risks: No Nutritional Risk Poor oral hygiene: No service: No Current occupational status: employed Meds Allergies Allergy/AdvReac Type Severity Reaction Status Date / Time Peanut Butter Allergy Mild Itching Verified 12/18/21 19:08 strawberry Allergy Mild Itching Verified 12/18/21 19:08 hazelnut Allergy Severe Throat Uncoded 12/18/21 19:08 swelling,Difficult breathing apples Allergy Mild Itching Uncoded 12/18/21 19:08 kiwi Allergy Mild Itching Uncoded 12/18/21 19:08 Home Medications Medication Instructions Recorded Confirmed Last Taken Type cetirizine 10 mg tablet (Zyrtec) 10 mg PO DAILY 05/31/20 12/18/21 Unknown History Exam Exam Date and Time: December 26, 2021 0914 Height,Weight and Vital Signs: Height 5 ft 5.5 in Weight 76.657 kg Pertinent Lab Results Pertinent Lab Results: Laboratory Tests 12/24/21 12/24/21 12/24/21 11:12 11:19 11:19 WBC 5.2 RBC 5.00 Hgb 14.4 Hct 42.2 MCV 84.4 MCH 28.8 MCHC 34.1 RDW 13.1 Plt Count 261 MPV 10.6 Immature Gran % (Auto) 0.2 Neut % (Auto) 57.2 Lymph % (Auto) 29.8 [place]ickory % (Auto) 9.1 Eos % (Auto) 3.1 Baso % (Auto) 0.6 Lymph # (Auto) 1.5 [place] # (Auto) 0.5 Eos # (Auto) 0.2 Baso # (Auto) 0.0 Abs Immat Gran (auto) 0.01 Absolute Neuts (auto) 3.0 Absolute Nucleated RBC 0.000 Nucleated RBC % (auto) 0.0 PT 12.4 INR 1.1 APTT 34.1 Sodium Potassium Chloride Carbon Dioxide Anion Gap BUN Creatinine Estim Creat Clear Calc Estimated GFR Random Glucose Calcium Total Bilirubin AST ALT Alkaline Phosphatase Total Protein Albumin Blood Type A Negative Antibody Screen NEGATIVE 12/24/21 11:19 WBC RBC Hgb Hct MCV MCH MCHC RDW Plt Count MPV Immature Gran % (Auto) Neut % (Auto) Lymph % (Auto) [place] % (Auto) Eos % (Auto) Baso % (Auto) Lymph # (Auto) [place] # (Auto) Eos # (Auto) Baso # (Auto) Abs Immat Gran (auto) Absolute Neuts (auto) Absolute Nucleated RBC Nucleated RBC % (auto) PT INR APTT Sodium 140 Potassium 4.1 Chloride 105 Carbon Dioxide 27 Anion Gap 12 BUN 22 H Creatinine 0.81 Estim Creat Clear Calc 119.3 Estimated GFR > 60 Random Glucose 95 Calcium 9.9 D Total Bilirubin 0.7 AST 21 ALT 22 Alkaline Phosphatase 70 Total Protein 7.8 Albumin 4.6 Blood Type Antibody Screen Assessment and Plan Assessment Anesthesia Assessment: Chart Reviewed Final Anesthetic Review Family History of Problems with Anesthesia: No History of Problems with Anesthesia: No Documented by User: Chris Pinzon MD 12/27/21 14:38 HPI - Anesthesia Eval Consult details Narrative: 36yo M for Bilateral Brachioplasty s/p gastric sleeve 2020 After having a discussion with the surgeon , the patient requested to cancel the procedure. [facility] Past Medical History Medical History BMI 32.0-32.9,adult BMI 34.0-34.9,adult BMI 36.0-36.9,adult BMI greater than 30 Congenital intra-abdominal adhesions COVID-19 vaccine series completed Diaphragmatic hernia Erectile dysfunction Excess skin GERD (gastroesophageal reflux disease) Left ventricular hypertrophy Liver fibrosis Obesity Overweight Postgastrectomy malabsorption Steatosis, liver Vitamin D deficiency Functional capacity: independent ambulation Family History Family History Father Heart problem Coronary artery clot DM (diabetes mellitus) HTN (hypertension) Obesity (BMI 30.0-34.9) Sleep apnea Mother RA (rheumatoid arthritis) Daughter No problems noted. Daughter No problems noted. Surgical History Surgical History History of sleeve gastrectomy History of tonsillectomy and adenoidectomy History of wisdom tooth extraction, class II edentulism Hx of abdominal surgery S/P repair of paraesophageal hernia S/P routine circumcision Social History Social History Household Members: Children Household Members Other:: minor children Housing: House Are you a primary lawn care specialist to a significant other at home: Yes Do you presently have visiting nurse or other home services: No Alcohol intake: never Patient Tobacco Use Status: Never used Tobacco Second Hand Smoke Exposure: No Use of substances other than those prescribed or required for medical reasons: No Have you been hit, kicked, punched, or otherwise hurt by someone within the past year? If so, by whom?: No Are you DNR?: No Advance Directives: No Advance Directives Information Provided: Yes (brochure mailed) Advance Directives on File: No Recently lost weight without trying: No Eating poorly because of decreased appetite: No Nutrition Risks: No Nutritional Risk Poor oral hygiene: No service: No Current occupational status: employed Meds Allergies Allergy/AdvReac Type Severity Reaction Status Date / Time Peanut Butter Allergy Mild Itching Verified 12/18/21 19:08 strawberry Allergy Mild Itching Verified 12/18/21 19:08 hazelnut Allergy Severe Throat Uncoded 12/18/21 19:08 swelling,Difficult breathing apples Allergy Mild Itching Uncoded 12/18/21 19:08 kiwi Allergy Mild Itching Uncoded 12/18/21 19:08 Home Medications Medication Instructions Recorded Confirmed Last Taken Type cetirizine 10 mg tablet (Zyrtec) 10 mg PO DAILY 05/31/20 12/18/21 Unknown History Exam Airway Mallampati Class: III TM Dist: >3cm Neck ROM: Full Loose/Missing/Broken Teeth: Yes Assessment and Plan Assessment Anesthesia Assessment: Anesthesia Plan Discussed Final Anesthetic Review NPO: Yes
[2021-12-27 06:35] VITALS: BP 99/63; PULSE 63; RESP 16; TEMP 36.2; O2SAT 99
[2021-12-27] MEDS: Lactated Ringers 1,000 ML 100 ML IVCONT (06:49)
--- NOTE | 2021-12-27 07:43 | PC.NURSE ---
After discussion with Dr Roy in regards to recovery restrictions and period, patient has cancelled procedure at this time.
== END ==
PROVIDERS: Visit Provider Surgery
DX: L03.90 Cellulitis, unspecified (principal); L98.7 Excessive and redundant skin and subcutaneous tissue; Z53.20 Procedure and treatment not carried out because of patient's decision for unspecified reasons
CPT/HCPCS: 36415; 80053; 85025; 85610; 85730; 86850; 86900; 86901; J0131; J0690; J2250; J3010

== ENCOUNTER 2022-04-04 12:50 | Outpatient (REF) | payer OTHER, SELFPAY ==
--- NOTE | ~2022-04-04 | US_ITS ---
EXAMINATION: US DIAGNOSTIC ULTRASOUND BREAST, RIGHT CLINICAL INFORMATION: Hypertrophy of breast. COMPARISON: Mammography of same day. TECHNIQUE: Ultrasound of the breast is performed with real-time hernandez scale imaging and color Doppler. FINDINGS: There is no focal suspicious finding. There is no solid mass, architectural abnormality, duct ectasia, or edema in the soft tissue planes. Results are discussed with the patient at time of visit. US/US breast RT limited IMPRESSION: No suspicious ultrasound findings of the right breast. ASSESSMENT: BI-RADS 1: Negative RECOMMENDATION: Clinical follow-up This patient's information was entered into a reminder system with a target due date for their next mammogram.
--- NOTE | ~2022-04-04 | MM_ITS ---
EXAMINATION: MM DIAGNOSTIC DIGITAL BREAST TOMOSYNTHESIS, BILATERAL CLINICAL INFORMATION: Hypertrophy of breast COMPARISON: Mammography: None TECHNIQUE: Digital breast tomosynthesis is performed in both the craniocaudal and mediolateral oblique views along with computer-aided detection (CAD). Synthesized 2D images are generated from the tomosynthesis. FINDINGS: There are scattered areas of fibroglandular density (ACR BI-RADS breast composition Category b). There are no significant masses, abnormal calcifications, or other abnormalities. Results are discussed with the patient at time of visit. MM/MM tomosynthesis diagnostic BI IMPRESSION: No mammographic evidence of malignancy. ASSESSMENT: BI-RADS 1: Negative RECOMMENDATION: Clinical follow-up
--- NOTE | ~2022-04-04 | US_ITS ---
EXAMINATION: US DIAGNOSTIC ULTRASOUND BREAST, LEFT CLINICAL INFORMATION: Hypertrophy of breast. COMPARISON: Mammography of same day. TECHNIQUE: Ultrasound of the breast is performed with real-time hernandez scale imaging and color Doppler. FINDINGS: There is no focal suspicious finding. There is no solid mass, architectural abnormality, duct ectasia, or edema in the soft tissue planes. Results are discussed with the patient at time of visit. US/US breast LT limited IMPRESSION: No suspicious ultrasound finding of breast. ASSESSMENT: BI-RADS 1: Negative RECOMMENDATION: Clinical follow-up
== END 2022-04-04 12:51 | disposition home or self-care (01) ==
LOC: HO.MAMMO 12:50
PROVIDERS: Visit Provider Hospitalist
DX: N62 Hypertrophy of breast (principal)
CPT/HCPCS: 76642; 77062; 77066

== ENCOUNTER 2023-06-30 08:15 | Outpatient (AMB) | payer OTHER, SELFPAY ==
--- NOTE | 2023-06-29 21:14 | A.OFFVIS_ITS ---
Intake VS Expanded 06/29/23 21:15 Height 5 ft 5.5 in Weight 193 lb BMI 31.6 Intake Visit Reasons: TV 3YR PO LSG 07/04/20 Allergies Peanut Butter Allergy (Mild, Verified 06/30/23 11:41) Itching strawberry Allergy (Mild, Verified 06/30/23 11:41) Itching hazelnut Allergy (Severe, Uncoded 06/30/23 11:41) Throat swelling,Difficult breathing apples Allergy (Mild, Uncoded 06/30/23 11:41) Itching kiwi Allergy (Mild, Uncoded 06/30/23 11:41) Itching Medication List - Last Reconciled 06/30/23 by Noé Roy MD phentermine 37.5 mg PO DAILY HPI TV 3YR PO LSG 07/04/20 HPI Details Start time: 10.50am, End time: 9.05am. An additional 15 minutes were used at a different part of the day to complete this note and review patient's records. ?I spent 15 minutes speaking with the patient on the phone plus an additional 15 minutes reviewing and updating records for a total of 30 minutes HPI Comments History of Present Illness Details Has regained significant weight back. Maintains a weight loss of 46.4lbs, or 19.38% [facility] Medical History (Updated 06/30/23 @ 12:21 by Noé Roy MD) COVID-19 vaccine series completed Vitamin D deficiency Overweight Postgastrectomy malabsorption Excess skin BMI greater than 30 BMI 32.0-32.9,adult Congenital intra-abdominal adhesions Erectile dysfunction Liver fibrosis Steatosis, liver Diaphragmatic hernia GERD (gastroesophageal reflux disease) Left ventricular hypertrophy BMI 36.0-36.9,adult BMI 34.0-34.9,adult Obesity Surgical History Hx of abdominal surgery History of sleeve gastrectomy S/P repair of paraesophageal hernia S/P routine circumcision History of wisdom tooth extraction, class II edentulism History of tonsillectomy and adenoidectomy Family History Father Heart problem Coronary artery clot DM (diabetes mellitus) HTN (hypertension) Obesity (BMI 30.0-34.9) Sleep apnea Mother RA (rheumatoid arthritis) Daughter No problems noted. Daughter No problems noted. Paternal Aunt Bipolar 1 disorder Schizophrenia Paternal Aunt Schizophrenia Bipolar 1 disorder Social History Household Members: Children Household Members Other:: minor children Housing: House Are you a primary customer care assistant to a significant other at home: Yes Do you presently have visiting nurse or other home services: No Alcohol intake: never Patient Tobacco Use Status: Never used Tobacco Second Hand Smoke Exposure: No service: No Current occupational status: employed Physical Exam Vital Signs: BMI result Body Mass Index 31.6 Assessment & Plan Assessment & Plan (1) BMI 31.0-31.9,adult: Code(s): Z68.31 - Body mass index [BMI] 31.0-31.9, adult (2) Obesity: Code(s): E66.9 - Obesity, unspecified Plan: 1. Change nutritional plan to one Celebrate Rebuild shake (HALF scoop in 8oz low fat unsweetened almond milk, buy at the hospital's gift shop) at 9am-11am, 2 Zone Perfect protein bars at 12pm-2pm and 3pm-5pm, dinner at 6pm (7 forks of protein and 7 forks of salad/vegetables), another Celebrate Rebuild shake (HALF scoop in 8oz low fat unsweetened almond milk at 8pm-10m and one more Zone Perfect bar at 11pm-1am. 2. Each shake would be drunk slowly, like coffee in a period of 2 hours. 3. Cut each bar in 4 pieces and eat each piece in 30min to make each bar last 2 hours. 4. Take the Phentermine daily 1pm. 5. If Phentermine reduces the hunger, use it to replace the dinner with another protein bar (3rd) at least a few days per week. Do not skip any of the protein products. 6. If you eat a dinner, I emphasized the importance of measuring accurately the food portion and measure it when serving the food in plate. 7. Send me weight measurement today or tomorrow and then weekly 8. Start treadmill with an incline of 2.0 and speed of 3.0. Increase incline by 1 every 3 min to a max incline of 8.0, stay 3min at 8.0 and then return to 2.0 and repeat same steps until calorie goal is met. Goal is to burn 2000 calories per week on exercise, which means either 300 calories daily, or 400 calories 5 days per week, or 500 calories 4 days per week, or 650 calories 3 days per week. 9. We discussed the potential side-effects of the Phentermine such as irritability, dry mouth, difficulty sleeping, dizziness, numbness in feet and high blood pressure. I asked him to get a blood pressure monitor and measure the blood pressure daily in the morning and evening. he needs to send the blood pressure readings daily and to call the office for blood pressure over 140/80 and he understands that. Medications: New phentermine must administer 30 minutes before or 1-2 hours after breakfast 37.5 mg PO DAILY 14 caps 0RF Z68.31 - Body mass index [BMI] 31.0-31.9, adult Telehealth Telehealth Location of provider rendering services: practice address Location of patient: address on file Patient Identification confirmed using: Name, : Yes Telehealth method: voice only Patient verbally consented to treatment: Yes Patient verbally consented to billing insurance company: Yes Patient informed of any privacy concerns related to visit: Yes Minutes spent on Phone/Video with Pt.: 30 Coding Level of Care Code Tele Est Pt Level 4 (69568) Diagnoses BMI 31.0-31.9,adult Z68.31 Obesity E66.9 Time Spent (min) 30
[2023-06-29 21:15] VITALS: BMI 31.6
--- OUTSIDE RECORDS SUMMARY | 2023-06-30 08:17 | XMS_ITS | Continuity of Care Document ---
Author Name Unknown Organization [facility] Address [address] [place] [address] [address] [place] [address]- Care Team Providers Care Black Studies Professor Name Role Phone Soheila LLOYD, Cherelle Primary Care Physician Unavail able Encounter [facility] Date(s): 06/13/22 - 07/13/22 [facility] [address] [place] [address] Drive [address] [place], [place] [address] Allergies, Adverse Reactions, Alerts No Known Allergies Patient Care team information Care Team Related Persons Name: NOA JUARES Address: [address] [place] [address]
--- OUTSIDE RECORDS SUMMARY | 2023-06-30 08:17 | XMS_ITS | Continuity of Care Document ---
Author Name Unknown Organization [facility] Address [address] [place] [address]- Care Team Providers Care Steam And Power Supervisor Name Role Phone Roxana Lara MD Primary Care Physician Encounter [facility] Date(s): 07/19/22 - 09/15/[address] [address]- Attending Physician: Dionne Bryant MD Admitting Physician: Dionne Bryant MD Allergies, Adverse Reactions, Alerts Substance Reaction Severity Status Saha itching Active Nuts hazelnut- anaphylaxis Active Medications ZyrTEC 10 mg oral tablet 1 tablet = 10 mg, By Mouth, Daily, # 30 tablet, 0 Refills, Maintenance, 08/19/22 11:20:00 EST, Tablet, Partial fill upon patient request if the prescription is for a schedule II opioid drug. Start Date: 08/19/22 Status: Ordered Patient Care team information Care Team Personnel Name: Roxana Lara MD Position: Reference Physician Member Role: PCP Address: Address: [address] [place] [address]- Care Team Related Persons Name: NOA JUARES Address: home [address] [place] [address]
--- OUTSIDE RECORDS SUMMARY | 2023-06-30 08:17 | XMS_ITS | Continuity of Care Document ---
Author Name Unknown Organization [facility] Address [address] [place] [address]- Care Team Providers Care Top Lift Trimmer Name Role Phone Marco LLOYD, Roxana Primary Care Physician Encounter [facility] Date(s): 08/20/22 - 08/20/[address] [address] Discharge Disposition: A-D/C Home Attending Physician: Dionne Bryant MD Admitting Physician: Dionne Bryant MD Referring Physician: Dionne Bryant MD Allergies, Adverse Reactions, Alerts Substance Reaction Severity Status Saha itching Active Nuts hazelnut- anaphylaxis Active Medications Fentanyl Inj (PACU ONLY) 50 mcg, Injection, IV Push Slowly, Every 5 minutes for 4 doses/times, in PACU ONLY, PRN for Pain , Severe, Routine, 08/20/22 13:50:00 EST, Stop date Limited # of times Start Date: 08/20/22 Stop Date: 08/20/22 Status: Completed Oxycodone 5mg Oral Tablet (PACU ONLY) 5 mg, Tablet, By Mouth, Once, in PACU ONLY, PRN for Pain , Moderate, Routine, 08/20/22 13:50:00 EST Start Date: 08/20/22 Stop Date: 08/20/22 Status: Completed ZyrTEC 10 mg oral tablet 1 tablet = 10 mg, By Mouth, Daily, # 30 tablet, 0 Refills, Maintenance, 08/19/22 11:20:00 EST, Tablet, Partial fill upon patient request if the prescription is for a schedule II opioid drug. Start Date: 08/19/22 Status: Ordered Vital Signs Most recent to oldest [Reference Range]: 1 2 3 Height 167 cm (08/20/22 12:06 PM) 167 cm (08/19/22 11:17 AM) Weight 80.7 kg (08/20/22 12:06 PM) 80.4 kg (08/19/22 11:17 AM) Oxygen Saturation [94-100 %] 99 % (08/20/22 3:30 PM) 100 % (08/20/22 3:15 PM) 100 % (08/20/22 3:00 PM) Pulse Rate [55-90 bpm] 66 bpm (08/20/22 12:06 PM) Body Mass Index [18.5-24.99 kg/m2] 28.94 kg/m2 *H* (08/20/22 12:06 PM) 28.83 kg/m2 *H* (08/19/22 11:17 AM) Blood Pressure [90-138/55-84 mm Hg] 120/65mm Hg (08/20/22 3:30 PM) 108/62mm Hg (08/20/22 3:15 PM) 106/60mm Hg (08/20/22 3:00 PM) Respiratory Rate [16-30 br/min] 16 br/min (08/20/22 3:55 PM) 16 br/min (08/20/22 3:30 PM) 21 br/min (08/20/22 3:30 PM) Temperature [96.8-100.4 DegF] 97 DegF (08/20/22 3:30 PM) 97.4 DegF (08/20/22 2:15 PM) 97.2 DegF (08/20/22 12:06 PM) Liters per Minute 6 L/min (08/20/22 3:00 PM) 6 L/min (08/20/22 2:45 PM) 6 L/min (08/20/22 2:30 PM) Mode of Delivery (Oxygen) Room air (08/20/22 3:30 PM) Room air (08/20/22 3:15 PM) Simple face mask (08/20/22 3:00 PM) Blood pressure sites Arm, right (08/20/22 2:15 PM) Arm, left (08/20/22 12:06 PM) Temperature Route Temporal (08/20/22 3:30 PM) Temporal (08/20/22 2:15 PM) Temporal (08/20/22 12:06 PM) Dry Weight 80.7 kg (08/20/22 12:06 PM) 80.4 kg (08/19/22 11:17 AM) Weight Obtained Via Patient/family state d (08/19/22 11:17 AM) Dry Weight Obtained Via Patient/family s tated (08/19/22 11:17 AM) Note * Adelina Velazco RN: PERFORM Event Display: Discharge/Transfer Note Hospital Authored Date: [id number] Nursing Discharge Note Entered On: 08/20/2022 18:06 EST Performed On: 08/20/2022 18:06 EST by Adelina Velazco RN Nursing Discharge Note 2 Discharge Time : 08/20/2022 17:48 EST Discharge Level of Care at Discharge : Home/[facility] Patient Left Unit Via : Wheelchair Patient Accompanied Off Unit with : Responsible adult DC Instructions Provided & Signed by Pt : Yes Patient Understands D/C Instructions : Yes Patient Instructions Discharge Signed : Yes Did Pt have Specialty Bed or Wound Vac : No Adelina Velazco RN - 08/20/2022 18:06 EST * Adelina Velazco RN: PERFORM Event Display: Patient Education/Instruction Authored Date: [id number] Inpatient Adult Discharge Instructions [place] [id number] Name: MYRNA JUARES : 1985 Visit: 08/20/2022 11:17:00 Current Date: 08/20/2022 14:39 Account: [id number] Inpatient Adult Discharge Instructions We would like to thank you for allowing us to assist you with your healthcare needs. The following includes patient education materials and information regarding your injury/illness. Our entire staffstrives to provide an excellent experience for our patients and their families. PLEASE ENSURE YOU FOLLOW-UP PER THE INSTRUCTIONS BELOW! ?? YOUR OPINION IS IMPORTANT TO US! Please complete the survey you may receive by mail or email. Your feedback will be used to make improvements to the healthcare experiences of our patients and their families. Surveys are administered by [employer] ?? If further treatment with your primary care physician or another doctor is recommended, it is important for you to keep the appointment. Call your primary care physician or return to the Emergency Department immediately if your condition worsens, fails to improve, or new symptoms develop. If you need to find a doctor, you can call [facility] for a referral at [phone] or toll free at [phone] ([phone]) or log in to [email or web address].. ?? You can view and manage your care through the patient portal or by using a health care janes of your choosing. Smart Checkout is a website that allows you to securely view your medical information including your hospital discharge summary, office visit summaries, medications and follow-up visits. You can also request appointments, renew medications, and request access to your medical information using a health care janes of your choosing, or just ask a question. You can enroll at [email or web address] or register during your next office visit. You have been discharged from [facility], Patient Care Unit: [facility]. If you have any questions regarding these instructions after you leave, please call us and we will be happy to assist you. [facility] Your Care Team Attending Physician Dionne Bryant MD Discharging Providers Nay Murphy Reason for Admission GYNOCOMASTIA MASTECTOMYBIL Tests Performed Below is a partial list of the tests performed during your hospitalization. You may have had other tests and procedures not included in this list. Please discuss all test results with your provider. Primary Care Provider Roxana Lara MD Advance Directive Health Care Proxy on File No No qualifying data available. Discharge Vitals Temperature: 97.4 DegF Height: 167 cm Pulse Rate: 66 bpm Weight: 80.7 kg Respiratory Rate: 16 br/min Body Mass Index:??28.94 kg/m2??High Respiratory Rate: 16 br/min Body surface area: 1.93 Systolic Blood Pressure: 108 mm Hg ?? Diastolic Blood Pressure: 68 mm Hg ?? Oxygen Saturation: 100 % ?? Studies Pending All tests and labs ordered during this hospital stay have been completed unless listed below. Please discuss all pending results with your provider listed above in these instructions. ?? No incomplete studies found What to do next Instructions From Your Doctor Discharge Orders Instructions from your Care Team FOLLOW POSTOP INSTRUCTIONS You Need to Schedule the Following Appointments Follow Up with??Dionne Bryant When??Within 1 to 2 weeks Where: [address] [facility], [address] [facility] [place] [address]- Business (1) Follow Up with??Roxana Lara When??In 0 days [facility] [address] [facility] [place] [address]- Business (1) Discharge Medications MYRNA JUARES :1985 Visit Date:08/20/2022 Medications: Please continue your medications until treatment is completed or stopped by your provider. Medications not listed below should be discontinued. Discuss any questions related to medications with your provider. What How Much When Instructions Next Dose Unchanged Cetirizine (ZyrTEC 10 mg oral tablet) 1 tab(s) Oral Daily Test Results Below is a partial list of the most recent Laboratory test results done prior to this discharge. You may have had other tests and procedures not included in this list. Please discuss all test resultswith your provider. Allergies (NKA means No Known Allergies) Saha??(itching) Nuts??(hazelnut- anaphylaxis) Problems No qualifying data available Education Materials Below is the list of Educational Leaflet Providered with your Discharge Instructions. Surgery Medical Daystay Surgical Overnight Discharge Instructions?? Valuables and Belongings I fully understand and agree that [facility] accepts no responsibility for all my personal property including clothing, toilet articles, radios, jewelry, dentures, hearing aids, rings, money, or any other property that is in my possession or is brought to me after admission. I understand certain valuables may be placed in a hospital safe for a short period of time. I understand that the hospital is not liable for loss or damage due to accident, fire, or other natural occurrence while said property is in the safe. I accept full responsibility for any personal property that I keep with me, and will not hold the hospital responsible in case of loss or disappearance. I acknowledge that i have been encouraged to send valuables and belongings home. ?? Date for Pt to Sign Valuables/Belongings: 08/20/22 12:06:00 ?? Valuables & Belongings ?? Clothes Electronic devices Jewelry Monetary Items Personal devices Miscellaneous Medications (Valuables) Valuables at Bedside Pants, Shirt, Shoes, Undergarments Cell phone ?? Credit cards, Money, Wallet ? Valuables Sent Home ? Valuables Sent to Security ? Other Discharge Information ? Pulmonary Rehab Status?? Pulmonary Rehab Discharge Status?? Respiratory Rate: 16 br/min Respiratory Rate: 16 br/min ? Common Emergency Awareness Tips IS IT A STROKE? Act FAST and Check for these signs: FACE Does the face look uneven? ARM Does one arm drift down? SPEECH Does their speech sound strange? TIME Call at any sign of stroke ?? Heart Attack Signs Chest discomfort: Most heart attacks involve discomfort in the center of the chest and lasts more than a few minutes, or goes away and comes back. It can feel like uncomfortable pressure, squeezing, fullness or pain. Discomfort in upper body: Symptoms can include pain or discomfort in one or both arms, back, neck, jaw or stomach. Shortness of breath: With or without discomfort. Other signs: Breaking out in a cold sweat, nausea, or lightheaded. Remember, MINUTES DO MATTER. If you experience any of these heart attack warning signs, call to get immediate medical attention! ?? Smoking can increase your chances of developing chronic health problems and can cause harmful effects to other family members in your house. If you smoke, you are strongly encouraged to quit. Please call [facility] GetFeedback Link at [phone] or [phone] ([phone]) or log in to [email or web address] for referrals to smoking cessation programs. ?? The National Suicide Prevention Hotline is available 03/03 if you or someone you know needs to find a reason to keep living. By calling 5-540-117-Docin (5426) you'll be connected to a skilled, trained counselor at a crisis center in your area. INPATIENT DISCHARGE INSTRUCTIONS SIGNATURE MYRNA PISANO Location:[facility] Registration Date and Time:08/20/2022 11:17 EST Primary Care Physician: Roxana Lara MD, I BLANQUITA MYRNA, have received the above patient education materials/instructions and have verbalized understanding. If ambulance or transport services are being used I further acknowledge being given a choice of service. ?? If you need to contact me, please call me at this number: . Patient/Exhaust Tender Name: Patient/Exhaust Tender Signature: Relationship to Patient: Witness Name/Signature: Date: * Adelina Velazco RN: PERFORM, SIGN, VERIFY Event Display: Patient Education Handout Authored Date: [id number] * Adelina Velazco RN: PERFORM Event Display: Patient Education Leaflets Authored Date: [id number] Surgery Medical Daystay Surgical Overnight Discharge Instructions ?? 295 Medical Daystay/Surgical Overnight Discharge Instructions ? Since your coordination and judgment may be altered by medication and/or anesthesia, a responsible adult must drive you home from the hospital. ? If you have received medication for pain or sedation while under our care, you should not drive, operate machinery, drink alcohol, or sign any legal documents for 24 hours.?? You should have someone with you at home tonight. ? Remain at home the day of discharge.?? You may be up and about unless otherwise instructed by your physician. ? You may resume your daily prescription medication schedule.?? Any depressant medication should be avoided for 24 hours unless otherwise instructed by your surgeon or anesthesiologist. ? Call your physician for a follow-up appointment.? If you experience unusual or severe pain not relied by your pain medication, excessive bleedingor drainage, persistent nausea and vomiting, excessive swelling or redness, foul odor from incisionsite or fever over 100.6F, you need to call your physician. ? A follow-up phone call by a nurse will be made the day after your procedure.?? If you have stayed with us over night, you will not be receiving a follow-up phone call. ? Nausea and vomiting are a common side effect of prescription pain medication.?? We recommend that pills are not taken on an empty stomach.?? While taking any prescription pain medication you should not drive or drink alcohol. ? Patient Care team information Care Team Personnel Name: Roxana Lara MD Position: Reference Physician Member Role: PCP Address: Address: [address] [place] [address]- Care Team Related Persons Name: NOA JUARES Address: home [address] [place] [address]
== END 2023-06-30 12:29 | disposition home or self-care (01) ==
PROVIDERS: PCP Hospitalist; Visit Provider Surgery
DX: E66.9 Obesity, unspecified (principal); Z68.31 Body mass index [BMI] 31.0-31.9, adult; Z90.3 Acquired absence of stomach [part of]; Z98.84 Bariatric surgery status
CPT/HCPCS: 99214

== ENCOUNTER → 2023-06-30 08:15 | Outpatient (BNVA) | payer OTHER, SELFPAY | PROVIDERS: PCP Hospitalist; Visit Provider Surgery ==